=== PATIENT | female | born 1935 | race Caucasian/White ===

== ENCOUNTER 2019-01-22 18:04 | Inpatient (IN) | payer MEDICARE, BC ==
[~2019-01-22] VITALS: Ht 172.7 cm; Wt 81.8 kg
[2019-01-22] VITALS (7 sets, daily range): BP systolic 96–117; BP diastolic 37–50
--- NOTE | 2019-01-22 18:15 | NUR ---
PT ARRIVED WITH IV TO [facility] WITH COBAN IN PLACE. REMOVED COBAN AND DRSG AND NOTED IV DISLLODGED. D/C'D INTACT, NO BLEEDING NOTED, BANDAGE APPLIED.
--- NOTE | 2019-01-22 19:04 | NUR ---
BS REPORT TO JOSE ANGEL FOREMAN BY SBAR FORMAT
[2019-01-22 19:09] LABS: BASOPHILS 0.1 % (0-2); EOSINOPHILS 0 % (0-7); HEMATOCRIT 30.9 % (36.0-48.0); HEMOGLOBIN 10.3 g/dL (12-16); IMMATURE GRANULOCYTES 0.2 % (0-5); LYMPHOCYTES 7.1 % (15-50); MCH 32.8 pg (26.0-34.0); MCHC 33.3 g/dL (31.0-37.0); MCV 98.4 fL (80.0-100.0); MONOCYTES 5.8 % (2-11); NEUTROPHILS 86.8 % (40-80); PLATELET COUNT 151 10x3/uL (130-400); RBC 3.14 10x6/uL (4.00-5.40); RDW 14.7 % (11.5-14.5); WBC 10.3 10x3/uL (4.8-10.8)
[2019-01-22] MEDS ORDERED: ASPIRIN81 MG PO (19:11)
[2019-01-22] MEDS ORDERED: CALCIUM 600 +1 EAC3 PO (19:12)
[2019-01-22] MEDS ORDERED: CLARITIN 10 MG10 MG PO (19:13)
[2019-01-22] MEDS ORDERED: CYCLOBENZAPRINE10 MG PO (19:14)
[2019-01-22 19:19] LABS: APTT 35.9 SECONDS (22.8-39.4); INR 1.28 (0.85-1.17); PROTIME 15.4 SECONDS (11.6-15.0)
[2019-01-22 19:26] LABS: ALBUMIN 2.5 g/dL (3.4-5.0); ALKALINE PHOSPHATASE 68 U/L (46-116); ALT (SGPT) 16 U/L (10-68); BILIRUBIN - TOTAL 1.08 mg/dL (0.2-1.3); CALC OSMOLALITY 278 mosm/kg (275-300); CALCIUM 8.8 mg/dL (8.5-10.1); CARBON DIOXIDE 25.5 mmol/L (21.0-32.0); CHLORIDE - SERUM 98 mmol/L (98-107); GLUCOSE 116 mg/dL (74-106); POTASSIUM - SERUM 4.2 mmol/L (3.5-5.1); PROTEIN - SERUM 6.3 g/dL (6.4-8.2); SODIUM 133 mmol/L (136-145); UREA NITROGEN 47 mg/dL (7-18); eGFR NON AFRICAN AMERICAN 16 mL/min (90-120)
[2019-01-22 19:27] LABS: APPEARANCE TURBID (CLEAR); COLOR YELLOW (YELLOW); NITRITE NEGATIVE (NEGATIVE); PROTEIN 1+ mg/dL (NEGATIVE)
[2019-01-22 19:28] LABS: BACTERIA MANY /hpf (NONE SEEN); BILIRUBIN NEGATIVE (NEGATIVE); EPITHELIAL CELLS 0-5 /hpf (0-5); GLUCOSE NEGATIVE (NEGATIVE); KETONE NEGATIVE (NEGATIVE); UROBILINOGEN NORMAL (NORMAL); WHITE CELLS - URINE >50 /hpf (0-5)
--- NOTE | 2019-01-22 19:32 | MORECARE ---
CASE MANAGEMENT DISCHARGE SUMMARY PATIENT: RASHEL DURON UNIT: [id number] ADM DATE: 01/22/19 AGE: 83 : 36 SEX: F ROOM/BED: D.2304 AUTHOR: SHAWN HENRY PHYSICIAN: REFERRING PHYSICIAN: DANNI GARCIA MD DATE OF SERVICE: 01/22/19 Discharge Plan Patient Name: RASHEL DURON Facility: [facility]:[place] : 1935 Planned Disposition: Anticipated Discharge Date: Discharge Date: Expected LOS: Initial Reviewer: [email or web address] Initial Review Date: 01/22/2019 Generated: 01/22/19 8:31 pm Patient Name: RASHEL DURON Page [id number] at 1932 All edits/amendments must be made on the electronic document DICTATION DATE: 01/22/191930 ELECTRICAL PRODUCTS SALES ENGINEER: JESSE 01/22/191930 RPT#: [id number] DC DATE: STATUS: ADM IN [facility] [address] [place] [address] END OF REPORT
[2019-01-22 19:42] LABS: CKMB 0.8 U/L (0.0-3.6); CREATINE KINASE 276 UL (21-215)
[2019-01-22 19:45] LABS: TROPONIN-I 0.396 ng/mL (0.000-0.060)
--- NOTE | 2019-01-22 19:50 | NUR ---
RECEIVED PATIENT TO ROOM 2304 VIA ED BED. ACCOMPANIED BY ED RN. ASSISTED TO ICU BED. MONITORS CONNECTED TO PATIENT WITH ALARMS SET. VSS. ORIENTED TO ROOM. CALL LIGHT IN REACH AND ABLE TO UTILIZE TO MAKE NEEDS KNOWN
--- NOTE | 2019-01-22 21:00 | NUR ---
RESTING IN BED WITH EYES CLOSED EASILY ROUSED AND ALERT. VSS
--- NOTE | 2019-01-22 23:00 | NUR ---
RESTING IN BED WITH EYES CLOSED, EASILY ROUSED AND ALERT. VSS
[2019-01-23] VITALS (18 sets, daily range): BP systolic 87–156; BP diastolic 30–82; BMI 36.6
[2019-01-23 02:12] LABS: CKMB 1.6 U/L (0.0-3.6); CREATINE KINASE 268 UL (21-215)
[2019-01-23 02:25] LABS: TROPONIN-I 0.229 ng/mL (0.000-0.060)
[2019-01-23] MEDS ORDERED: BUMEX2 MG PO ×2 (04:47→05:00)
[2019-01-23] MEDS ORDERED: VISTARIL25 MG PO ×2 (04:48→05:35)
[2019-01-23] MEDS ORDERED: NEURONTIN 300300 MG PO (04:49)
[2019-01-23] MEDS ORDERED: NEURONTIN 400400 MG PO (04:52)
[2019-01-23] MEDS ORDERED: SILDENAFIL CITRATE PO (04:54)
--- NOTE | 2019-01-23 05:00 | NUR ---
RESTING IN BED WITH EYES CLOSED EASILY ROUSED AND ALERT. VSS
[2019-01-23] MEDS ORDERED: LIPITOR10 MG PO (05:01)
[2019-01-23] MEDS ORDERED: COREG12.5 MG PO (05:02)
[2019-01-23] MEDS ORDERED: OXYBUTYNIN CHLORIDE PO (05:04)
[2019-01-23] MEDS ORDERED: PAXIL10 MG PO (05:06)
[2019-01-23] MEDS ORDERED: PHENAZOPYRIDINE HCL PO (05:09)
[2019-01-23] MEDS ORDERED: PROTONIX FOR OR40 MG PO (05:10)
[2019-01-23] MEDS ORDERED: POTASSIUM CHLORIDE E PO (05:12)
[2019-01-23] MEDS ORDERED: CLONIDINE HCL 0.1 MG PO (05:14)
[2019-01-23] MEDS ORDERED: NYSTATIN1 PWD TOPICAL (05:20)
[2019-01-23] MEDS ORDERED: MUCINEX600 MG PO (05:24)
[2019-01-23] MEDS ORDERED: IPRAT-ALBUT 0.5-3 ML INH (05:25)
[2019-01-23] MEDS ORDERED: LAMISIL AT12 G1 TOPICAL (05:27)
[2019-01-23] MEDS ORDERED: LIDODERM 5 %1 PATCH TD (05:29)
[2019-01-23] MEDS ORDERED: MYLANTA / MAALO30 ML PO (05:30)
[2019-01-23] MEDS ORDERED: ZOFRAN4 MG PO (05:32)
[2019-01-23] MEDS ORDERED: PHENERGAN25 M1 PO (05:33)
[2019-01-23] MEDS ORDERED: ACETAMINOPHEN500 M1 PO (05:34)
[2019-01-23] MEDS ORDERED: VITAMIN D31000 UNIT PO (05:36)
[2019-01-23] MEDS ORDERED: ARTIFICIAL TEAR15 ML EACH EYE (05:38)
[2019-01-23] MEDS ORDERED: CALCIUM 600 +1 EAC3 PO (05:39)
[2019-01-23 05:40] LABS: BASOPHILS 0.1 % (0-2); EOSINOPHILS 0.1 % (0-7); HEMATOCRIT 28.6 % (36.0-48.0); HEMOGLOBIN 9.4 g/dL (12-16); IMMATURE GRANULOCYTES 0.2 % (0-5); LYMPHOCYTES 5.3 % (15-50); MCH 32.3 pg (26.0-34.0); MCHC 32.9 g/dL (31.0-37.0); MCV 98.3 fL (80.0-100.0); MEAN PLATELET VOLUME 10.2 fL (7.4-10.4); MONOCYTES 8.7 % (2-11); NEUTROPHILS 85.6 % (40-80); PLATELET COUNT 135 10x3/uL (130-400); RBC 2.91 10x6/uL (4.00-5.40); RDW 14.7 % (11.5-14.5); WBC 9.5 10x3/uL (4.8-10.8)
[2019-01-23] MEDS ORDERED: CLARITIN 10 MG10 MG PO (05:40)
[2019-01-23] MEDS ORDERED: CYCLOBENZAPRINE5 MG PO (05:41)
[2019-01-23] MEDS ORDERED: COZAAR50 MG PO (05:41)
[2019-01-23 06:02] LABS: ALBUMIN 2.1 g/dL (3.4-5.0); BILIRUBIN - TOTAL 1.08 mg/dL (0.2-1.3); CALCIUM 8.5 mg/dL (8.5-10.1); CARBON DIOXIDE 24.1 mmol/L (21.0-32.0); CREATININE - SERUM 3.2 mg/dL (0.6-1.3); MAGNESIUM - SERUM 1.3 mg/dL (1.8-2.4); PHOSPHOROUS 3.9 mg/dL (2.5-4.9); PROTEIN - SERUM 5.8 g/dL (6.4-8.2); VANCOMYCIN - RANDOM 18.8 ug/mL (10.0-20.0)
[2019-01-23 06:13] LABS: ANION GAP 13.8 mmol/L (8-16); POTASSIUM - SERUM 4.9 mmol/L (3.5-5.1)
--- NOTE | 2019-01-23 07:00 | NUR ---
REPORT RECEVIED FROM THE OFF GOING RN. SEE ASSESSMENT IN THE PTS FLOW SHEET. VSS AT THIS TIME. PT WILL GO FROM CONTROLLED AFIB TO NSR. PT DENIES PAIN/NEEDS AT THIS TIME. CALL LIGHT IN REACH. WILL CONT POC.
[2019-01-23 08:01] LABS: CKMB 0.9 U/L (0.0-3.6); CREATINE KINASE 220 UL (21-215)
[2019-01-23 08:03] LABS: TROPONIN-I 0.186 ng/mL (0.000-0.060)
--- NOTE | 2019-01-23 10:03 | NUR ---
SPOKE WITH DR GIFFORD. HE IS AWARE OF CONSULT.
--- NOTE | 2019-01-23 14:00 | NUR ---
PT LEFT WITH RADIOLOGY IN A STABLE CONDITION.
--- NOTE | 2019-01-23 14:59 | NUR ---
PT BACK FROM RADIOLOGY
--- NOTE | 2019-01-23 16:41 | NUR ---
REPORT CALLED TO ABEL STUART.
--- NOTE | 2019-01-23 17:08 | NUR ---
ALL [facility] ACCOUNTED FOR. PT TRANSFERED TO 2108 IN A STABLE CONDITION.
--- NOTE | 2019-01-23 17:14 | NUR ---
RECEIVED VIA BED FROM ICE. INTRODUCED MYSELF AND ORIENTED HER TO THE ROOM. SON AT BEDSIDE. IV PATENT TO LEFT FOREARM WITHOUT REDNESS OR EDEMA. NO REQUESTS VOICED.
--- NOTE | 2019-01-23 18:26 | NUR ---
IV LEFT FOREARM INFILTRATED, DC'D AND RESTARTED IN RIGHT HAND WITH 22G X 1 ATTEMPT. GIVEN ZOFRAN FOR C/O NAUSEA AND DOES NOT WANT EVENING MEAL AT THIS TIME. SPITTING UP LARGE AMT OF CLEAR MUCOUS.
--- NOTE | 2019-01-23 21:30 | NUR ---
EVENING ROUNDS COMPLETED. REPORT RECEIVED. PT SITTING UP IN BED WITH EYES OPENM, RR EVEN AND UNLABORED. BED IN LOW POSITION. NO S/S OF DISTRESS NOTED. INTRODUCED SELF TO PT. PT DENIES FURTHER NEEDS AT THIS TIME. EVENING MEDICATIONS ADMINISTERED WITHOUT ISSUE. CALL LIGHT IN REACH. WILL CTM.
[2019-01-24] VITALS: BP 112/66
--- NOTE | 2019-01-24 00:25 | NUR ---
EOSINOPHIL URINE TEST COLLECTED ORDERED. ADMINISTERED ORDERED ANALGESIC FOR COMPLAINTS OF BACK PAIN. NO S/S OF DISTRESS NOTED. CALL LIGHT IN REACH. WILL CTM,.
--- NOTE | 2019-01-24 01:41 | NUR ---
I have reviewed this patient and I concur with the Shift Assessment completed by the Licensed Practical Nurse today this shift.
--- NOTE | 2019-01-24 02:17 | NUR ---
PT SITTING UP IN BED WITH EYES CLOSED, RR EVEN AND UNLABORED. BED IN LOW POSITION. ORDERED ABX INFUSING ORDERED. NO S/S OF DISTRESS NOTED. CALL LIGHT IN REACH. WILL CTM.
--- NOTE | 2019-01-24 03:58 | NUR ---
PT IS DIAPHORETIC AND FLUSHED IN THE FACE. EKG DONE AND PLACED IN THE CHART. PT IS UNCONTROLLED AFIB. HEAR RATE RANGING FROM 110-140 CHECKED FSBS IT SI 131 PT DENIES ANY AFIB, SON STATES WHEN PT WAS IN ICU SHE HAD AFIB, EKG SCANNED IN THE COMPUTER IS NOTED TO HAVE SR. DENTAL SURGEON STATES PT HAS BEEN IN A FIB SINCE ADMIT TO 2[address]. P[address] DUE TO THE INCREASE IN HEART RATE AND DECREASE IN BLOOD PRESSURE. THALIA STUART WILL UPDATE DOCTOR.
[2019-01-24 04:00] VITALS: BP 81/43
--- NOTE | 2019-01-24 04:05 | NUR ---
NOTIFIED BY DEPUTY SHERIFF BAILIFF OF PT BLOOD PRESSURE, 81/43 TAKEN IN LEFT ARM. EKG PERFORMED. NOTIFIED DR GIFFORD OF PT EKG RESULT. NO ORDERS GIVEN. WILL CTM.
--- NOTE | 2019-01-24 08:05 | NUR ---
RECEIVED BED SIDE SHIFT REPORT FROM NIGHT NURSE. PT ASLEEP.
[2019-01-24 08:38] VITALS: BP 146/75
[2019-01-24 08:57] VITALS: Ht 172.7 cm; Wt 81.8 kg
[2019-01-24 11:30] VITALS: BP 140/71
--- NOTE | 2019-01-24 14:33 | CN ---
PATIENT NAME:RASHEL DURON MEDICAL RECORD: [id number] : 37 LOCATION:D.Lance D.2109 ADMIT DATE: 01/22/19 ACCOUNT: [id number] CONSULTING PHYSICIAN: HUGH GIFFORD MD REFERRING PHYSICIAN: DANNI GARCIA MD DATE OF CONSULTATION: 01/23/2019 HISTORY OF PRESENT ILLNESS: An 83-year-old female transferred from [facility]. She has history of coronary artery disease and pulmonary hypertension. Found to have elevated cardiac enzymes and urosepsis. Denies any pressure or tightness in the chest. She does have dyspnea at baseline, but this is no worse by her report. We are asked to see her concerning her cardiovascular status. PAST MEDICAL HISTORY: Includes; 1. History of hypertension. 2. Dyslipidemia. 3. Coronary artery disease. 4. Pulmonary hypertension. ALLERGIES: REGLAN. MEDICATIONS: Include Annabel 30 mg p.o. b.i.d., Protonix 40 daily, Mucinex 400 b.i.d., Bumex 2 mg p.o. daily, Vistaril 25 q.i.d. p.r.n., Paxil 30 daily, Neurontin 300 b.i.d. and 400 at bedtime, aspirin 81 daily, losartan 50 mg b.i.d., carvedilol 12.5 b.i.d., and Lipitor 10 daily. SOCIAL HISTORY: Resides in halfway in [place], [place]. Nonsmoker and nondrinker. REVIEW OF SYSTEMS: The patient reports easy bruising but reports no swollen glands. The patient reports no fever, no night sweats, no significant weight gain, no significant weight loss. No significant exercise tolerance. The patient reports no dry eyes, no irritation, no vision change. Patient reports no difficulty hearing and no ear pain. Patient reports no frequent nose bleeds or nose and sinus problems. Patient reports on arm pain on exertion. No shortness of breath while lying down. No history of heart murmur. Patient reports no cough, no wheezing or coughing up blood. Patient reports no abdominal pain, no vomiting. Normal appetite. No diarrhea and not vomiting blood. No nausea and no constipation. Patient reports no incontinence. No difficulty urinating. No hematuria. No increased frequency. Patient reports no muscle aches. No weakness, no arthralgias, no back pain. No swelling of the extremities. Patient reports no abnormal mole, no jaundice, no rashes. Reports no loss of consciousness. No weakness and no numbness. No seizures, dizziness, or headaches. The patient reports no depression, no sleep disturbance, feeling safe in a relationship and no alcohol abuse. Patient reports on fatigue. Reports no runny nose or sinus pressure. No itching, no hives, and no frequent sneezing. PHYSICAL EXAMINATION: GENERAL: Pleasant elderly female, in no acute distress. VITAL SIGNS: Blood pressure 136/82. Pulse 78 and regular. HEENT: Normocephalic and atraumatic. NECK: No bruits noted. HEART: Regular. II/ systolic ejection murmur. CONSULT REPORT [id number] RASHEL DURON LUNGS: Good air excursion. ABDOMEN: Soft and nontender. EXTREMITIES: Pulses 2+ with no edema. IMPRESSION: Difficult to fully assess cardiac enzymes, particularly in light of her elevated creatinine, although certainly could be a strain pattern from underlying urosepsis. This is more likely given her lack of symptoms from ischemic standpoint. I will check echocardiographic study for focal wall motion. Otherwise, agree with current management. TRANSINT:[id number] Voice Confirmation ID: [id number] DOCUMENT ID: [id number] HUGH GIFFORD MD at 1433 CC: [id number] DICTATION DATE: 01/23/19 183 ENERGY DERIVATIVES TRADER: 01/23/192013 ADM IN [facility] [address] [place] [address]
[2019-01-24 14:48] VITALS: BP 133/72
--- NOTE | 2019-01-24 17:06 | MORECARE ---
CASE MANAGEMENT DISCHARGE SUMMARY PATIENT: RASHEL DURON UNIT: [id number] ADM DATE: 01/22/19 AGE: 83 : 36 SEX: F ROOM/BED: D.2105 AUTHOR: CARL,DOC PHYSICIAN: REFERRING PHYSICIAN: DANNI GARCIA MD DATE OF SERVICE: 01/24/19 Discharge Plan Patient Name: RASHEL DURON Facility: [facility]:[place] : 1935 Planned Disposition: Nursing Facility [facility] Cert Anticipated Discharge Date: Discharge Date: Expected LOS: Initial Reviewer: [email or web address] Initial Review Date: 01/22/2019 Generated: 01/24/19 6:06 pm Comments DCP- Discharge Planning Updated by [email or web address]: Rodrigo Case on 01/24/19 4:[address] Patient Name: RASHEL DURON Admission Status: ER Accout number: [id number] Admission Date: 01-22-2019 : 1935 Admission Diagnosis: Attending: DANNI GARCIA Current LOS: 2 Anticipated DC Date: Planned Disposition: Nursing Facility [facility] Cert Primary Insurance: MEDICARE A & B PLANNED EXTERNAL PROVIDER: [facility], STEAM BRUSH OPERATOR CARE MEDICAID BED Discharge Planning Comments: CM MET WITH PT AND SONMARCO IN ROOM TO DISCUSS DISCHARGE NEEDS AND PLANNING. PT AND SON REPORT PT LIVES AT [facility] AND WILL RETURN THERE AT DISCHARGE. CHOICE LETTER SIGNED. Worm Farmer: Rodrigo Case DCPIA - Discharge Planning Initial Assessment Updated by [email or web address]: Rodrigo Case on 01/24/19 5:02 pm * Is the patient Alert and Oriented? Yes * How many steps to enter\exit or inside your home? NONE * PCP [facility] * Pharmacy [facility] * Preadmission Environment Germination Testing Manager Long-Term * Facility Name [facility] * ADLs Partial Dependent * Partial ADLs (Assistance needed) Ambulation Bathing Medication Management Toileting Transfers * Equipment Nebulizer Oxygen Walker Wheelchair * Other Equipment ALL MEDICAL EQUIPMENT PROVIDED BY [facility] * List name and contact numbers for known caregivers / representatives who currently or will assist patient after discharge: HARRISON LARA, HARRISON SHANNON, * Verbal permission to speak to the caregivers and representatives has been obtained from the patient. Yes * Community resources currently utilized None * Please name any agencies selected above. NONE * Additional services required to return to the preadmission environment? No * Can the patient safely return to the preadmission environment? Yes * Has this patient been hospitalized within the prior 30 days at any hospital? No Coverage Notice Reviewer: [id number] Chucho Case Notice Issued Date-Time: 01/24/2019 13:10 Notice Type: Patient Choice Letter Notice Delivered To: Family Member Relationship to Patient: Son Impregnator Electrolytic Capacitors Name: MARCO Delivery Method: HAND - Hand Delivered Zahida Days: Prior Verbal Notification: Recipient Understood Notice: Yes Recipient Signature: Yes Med Rec Note Co-signed by Attending: Coverage Notice Comment: [facility] Last DP export: 01/22/19 6:32 pm Patient Name: RASHEL DURON Page 36019 at 1706 All edits/amendments must be made on the electronic document DICTATION DATE: 01/24/191705 BOAT ASSEMBLER: JESSE 01/24/19 170 RPT#: [id number] DC DATE: STATUS: ADM IN [facility] [address] [place] [address] END OF REPORT
--- NOTE | 2019-01-24 19:06 | NUR ---
RECIEVED UP IN BED WITH HOB ELEVATED. IV TO RIGHT HAND WITH NS AT 58CC/HR. ALERT AND ORIENTED. F/C INTACT WITH CLEAR YELLOW URINE TO TRADE MARK EXAMINER DRAINAGE BAG. TELEMETRY IN PLACE. DENIES ANY NEEDS AT THIS TIME.
[2019-01-24 20:00] VITALS: BP 129/67
[2019-01-25] VITALS (11 sets, daily range): BP systolic 98–159; BP diastolic 64–98
[2019-01-25 05:01] LABS: BASOPHILS 0.1 % (0-2); EOSINOPHILS 1.7 % (0-7); HEMATOCRIT 27.6 % (36.0-48.0); HEMOGLOBIN 9.6 g/dL (12-16); IMMATURE GRANULOCYTES 0.3 % (0-5); LYMPHOCYTES 13.6 % (15-50); MCH 33.2 pg (26.0-34.0); MCHC 34.8 g/dL (31.0-37.0); MEAN PLATELET VOLUME 10.7 fL (7.4-10.4); MONOCYTES 11.1 % (2-11); NEUTROPHILS 73.2 % (40-80); PLATELET COUNT 148 10x3/uL (130-400); RBC 2.89 10x6/uL (4.00-5.40); RDW 14.4 % (11.5-14.5); WBC 7.2 10x3/uL (4.8-10.8)
[2019-01-25 05:02] LABS: MCV 95.5 fL (80.0-100.0)
[2019-01-25 05:29] LABS: ANION GAP 16.8 mmol/L (8-16); CARBON DIOXIDE 23.1 mmol/L (21.0-32.0); CREATININE - SERUM 2.8 mg/dL (0.6-1.3); POTASSIUM - SERUM 4.9 mmol/L (3.5-5.1); VANCOMYCIN - RANDOM 18.5 ug/mL (10.0-20.0)
--- NOTE | 2019-01-25 12:56 | NUR ---
PT C/O FEELING WEAK AND NAUSEATED BUT DENIES ANY PAIN. SKIN COOL AND CLAMMY B/P 85/53. ORDER RECEIVED FROM DR. STALLINGS PLANT WORKER FOR 500CC BOLUS OF NS AND CALL DR. GARCIA WHICH WAS DONE AND NO FURTHER ORDERS RECEIVED.
--- NOTE | 2019-01-25 14:00 | NUR ---
500 CC BOLUS COMPLETED AND B/P REMAINS LOW AT 72/47. DR. GARCIA IS ON FLOOR AT THIS TIME AND WILL SEE PT.
--- NOTE | 2019-01-25 14:13 | NUR ---
IN PATIENT CHART TO ASSIST WITH PATIENT CARE.
--- NOTE | 2019-01-25 15:22 | NUR ---
PATIENT TRANSFERRED VIA BED BY TWO NURSING STAFF TO ICU - TRANSFERRED PT TO ICU BED - HYPOTHERMIC (94.4) PLACED PT ON BED WARMER - PT THANKED - PT RESTING WITH EYES CLOSED - RESPIRATIONS REG RATE AND RHYTHM - QUICK START DONE. VSS.
--- NOTE | 2019-01-25 15:25 | NUR ---
ORDER RECEIVED FROM DR. GARCIA-TRANSFER TO ICU. REPORT CALLED TO LIVIA PT TRANSFERRED VIA BED, PTS SON NOTIFIED.
--- NOTE | 2019-01-25 16:11 | NUR ---
PT RESTING WITH EYES CLOSED - RESPIRATIONS REG RATE AND RHYTHM - VSS - CPOC
--- NOTE | 2019-01-25 17:50 | NUR ---
PT AWAKENED C/O FEELING HOT - CHECKED TEMP 98.6 ORAL - STOPPED BEAR HUGGER - DINNER TRAY GIVEN TO PATIENT - MEDICATIONS GIVEN - PT STATED SHE FEELS MUCH BETTER - VSS - PT DENIED ANY ACUTE DISCOMFORT - CPOC
--- NOTE | 2019-01-25 18:24 | NUR ---
PATIENT WATCHING TELEVISION - PATIENT STATED SHE WILL EAT DINNER TRAY AFTER SHE RESTS. VSS [facility]
--- NOTE | 2019-01-25 18:56 | NUR ---
ATTEMPTED TO OBTAIN URINE SAMPLET BUT WAS UNABLE TO DO SO - WILL NOTIFY ONCOMING RN -
--- NOTE | 2019-01-25 19:45 | NUR ---
RECEIVED PATIENT CARE SHIFT ASSESSMENT COMPLETED SEE FLOWSHEET
[2019-01-25 20:49] LABS: ANION GAP 18.5 mmol/L (8-16); CALCIUM 8.7 mg/dL (8.5-10.1); CARBON DIOXIDE 19.7 mmol/L (21.0-32.0); CREATININE - SERUM 3.1 mg/dL (0.6-1.3); POTASSIUM - SERUM 4.2 mmol/L (3.5-5.1)
--- NOTE | 2019-01-25 23:15 | NUR ---
REASSESSMENT COMPLETED SEE FLOWSHEET
[2019-01-26] VITALS (23 sets, daily range): BP systolic 123–187; BP diastolic 76–140
--- NOTE | 2019-01-26 00:51 | NUR ---
PT TEMP 96.7 - WARM BLANKET X2 APPLIED AT THIS TIME
--- NOTE | 2019-01-26 01:15 | NUR ---
PATIENT RECEIVED TISSUES PER REQUEST
--- NOTE | 2019-01-26 03:50 | NUR ---
PATIENT REQUESTED PRN NAUSEA MEDICATION SEE EMAR FOR ADMINISTRATION
[2019-01-26 03:57] LABS: HEMATOCRIT 27.2 % (36.0-48.0); HEMOGLOBIN 9.5 g/dL (12-16); MCH 32.6 pg (26.0-34.0); MCHC 34.9 g/dL (31.0-37.0); MEAN PLATELET VOLUME 11.5 fL (7.4-10.4); PLATELET COUNT 172 10x3/uL (130-400); RBC 2.91 10x6/uL (4.00-5.40); RDW 14.7 % (11.5-14.5); WBC 7.4 10x3/uL (4.8-10.8)
[2019-01-26 03:58] LABS: MCV 93.5 fL (80.0-100.0)
[2019-01-26 04:09] LABS: EOSINOPHILS 2 % (0-7); LYMPHOCYTES 20 % (15-50); MONOCYTES 18 % (2-11); NEUTROPHILS 60 % (40-80); PLATELET ESTIMATE NORMAL
[2019-01-26 04:10] LABS: ANION GAP 16.9 mmol/L (8-16); CALCIUM 8.5 mg/dL (8.5-10.1); CARBON DIOXIDE 21.2 mmol/L (21.0-32.0); CREATININE - SERUM 3.3 mg/dL (0.6-1.3); POTASSIUM - SERUM 4.1 mmol/L (3.5-5.1); VANCOMYCIN - RANDOM 30.1 ug/mL (10.0-20.0)
--- NOTE | 2019-01-26 05:56 | NUR ---
PATIENT SON AT BEDSIDE, ALL QUESTIONS ANSWERED UPDATE GIVEN CPOC
--- NOTE | 2019-01-26 10:01 | NUR ---
INCONT OF STOOL
--- NOTE | 2019-01-26 11:00 | NUR ---
NO CHANGES NOTED
--- NOTE | 2019-01-26 15:00 | NUR ---
NO CHANGES NOTED
--- NOTE | 2019-01-26 19:15 | NUR ---
RECEIVED PATIENT CARE, PATIENT RESTING, EVEN RISE AND FALL OF CHEST ATTENTION FOCUSED ON TELEVISION DENIES NEEDS SYSTOLIC BP ELEVATED, READJUSTED BLOOD PRESSURE CUFF. PT DENIES PAIN. CPOC
--- NOTE | 2019-01-26 21:15 | NUR ---
PT CO OF NAUSEA, PRN ZOFRAN RECEIVED SEE EMAR FOR ADMINISTRATION
--- NOTE | 2019-01-26 21:20 | NUR ---
SPOKE WITH DR GARCIA REGARDING PATIENT SYSTOLIC AND DIASTOLIC BP - NEW ORDERS RECEIVED
--- NOTE | 2019-01-26 21:35 | NUR ---
UNABLE TO GIVE NEWLY ORDERED MED AT THIS TIME DUE TO AVAILABILITY
--- NOTE | 2019-01-26 23:15 | NUR ---
REASSESSMENT COMPLETED PATIENT RECEIVED SPRITE PER REQUEST. EDUCATION PROVIDED ON NPO STATUS AFTER MIDNIGHT DUE TO PROCEDURE NEXT AM
[2019-01-27] VITALS (17 sets, daily range): BP systolic 127–183; BP diastolic 90–142
--- NOTE | 2019-01-27 00:35 | NUR ---
ELEVATED DIASTOLYIC PRESSURE NOTED AT THIS TIME PT CO OF NAUSEA
--- NOTE | 2019-01-27 02:17 | NUR ---
PT CO OF N/V MEDICATION ADMINISTERED SEE EMAR FOR DETAILS TEMP 99.3
[2019-01-27 04:13] LABS: BASOPHILS 0.2 % (0-2); EOSINOPHILS 1.6 % (0-7); HEMATOCRIT 27.5 % (36.0-48.0); HEMOGLOBIN 9.4 g/dL (12-16); IMMATURE GRANULOCYTES 1.1 % (0-5); LYMPHOCYTES 12.7 % (15-50); MCH 32.4 pg (26.0-34.0); MCHC 34.2 g/dL (31.0-37.0); MCV 94.8 fL (80.0-100.0); MEAN PLATELET VOLUME 11.1 fL (7.4-10.4); MONOCYTES 10.9 % (2-11); NEUTROPHILS 73.5 % (40-80); PLATELET COUNT 199 10x3/uL (130-400); RDW 14.7 % (11.5-14.5)
[2019-01-27 04:17] LABS: WBC 9.5 10x3/uL (4.8-10.8)
[2019-01-27 04:29] LABS: ANION GAP 17.2 mmol/L (8-16); CALCIUM 8.5 mg/dL (8.5-10.1); CARBON DIOXIDE 20.7 mmol/L (21.0-32.0); CREATININE - SERUM 3.2 mg/dL (0.6-1.3); POTASSIUM - SERUM 3.9 mmol/L (3.5-5.1); VANCOMYCIN - RANDOM 22.4 ug/mL (10.0-20.0)
--- NOTE | 2019-01-27 06:15 | NUR ---
PT INCONTINENT OF BOWEL , FULL LINEN CHNAGE CHG BATHE COMPLETED AT THIS TIME INCREASED DYASTOLIC
--- NOTE | 2019-01-27 07:00 | NUR ---
RECEIVED REPORT FROM NIGHT NURSE. PT RESTING IN BED AWAKE AND ALERT WITH VSS. CONTROLLED A-FIB. WILL CONTINUE TO MONITOR
--- NOTE | 2019-01-27 09:00 | NUR ---
PATIENT STABLE. ATTEMPTED TO START NEW IV BUT FAILED. STILL HAS 22 GUAGE TO RIGHT HAND BUT IS POSITIONAL. WILL USE FOR NOW
--- NOTE | 2019-01-27 09:29 | NUR ---
NUTRITION F/U CHART REVIEWED. PT CURRENTLY NPO. WILL PROVIDE DIET WHEN RESUMED, MONITOR PO INTAKE. RD FOLLOWING
--- NOTE | 2019-01-27 10:30 | NUR ---
ESOPHAGEAL ECHO COMPLETED AT THIS TIME BY DR. SOLORIO. PT AWOKEN FROM PROPOFOL ANESTHESIA. VSS. WILL CONTINUE TO MONITOR
--- NOTE | 2019-01-27 11:30 | NUR ---
OBTAINED ADDITIONAL BP MED FOR HYPERTENSION FROM DR. TREJO. PT AWAKE AND ALERT RESTING IN BED.
--- NOTE | 2019-01-27 13:00 | NUR ---
PHYSICAL THERAPY CAME BY AND LET PATIENT SIT UP ON SIDE OF BED. PATIENT TOLERATED WELL.
--- NOTE | 2019-01-27 14:10 | NUR ---
DR. TREJO GAVE OKAY TO TRANSFER PATIENT TO FLOOR.
[2019-01-27 15:41] LABS: ERYTHROCYTE SEDIMENTATION RATE 47 mm/hr (0-30)
--- NOTE | 2019-01-27 16:36 | NUR ---
CALLED REPORT TO MED 2 NURSE.
--- NOTE | 2019-01-27 16:45 | NUR ---
RECEIVED PT FROM ICU VIA BED IN STABLE CONDITION WITH PERSONAL BELONGINGS PT ON CONTACT ISOLATION HAS ROGERS CATHETER W/CLEAR YELLOW URINE RT THUMB IV PATENT WITH NS @ 50CC/HR WITHOUT DIFFICULTY SITE FREE OF REDNESS OR EDEMA
--- NOTE | 2019-01-27 20:01 | NUR ---
REST IN BED. FAMILY AT BEDSIDE. CALL LIGHT IN REACH.
[2019-01-28] VITALS: BP 134/85
--- NOTE | 2019-01-28 01:47 | NUR ---
I have reviewed this patient and I concur with the Shift Assessment completed by the Licensed Practical Nurse today this shift.
--- NOTE | 2019-01-28 01:49 | NUR ---
REST QUIETLY IN BED. RESP EVEN, NO S/S OF DISTRESS. CALL LIGHT IN REACH.
[2019-01-28 04:00] VITALS: BP 154/79
[2019-01-28 06:22] LABS: ANION GAP 15.5 mmol/L (8-16); CALCIUM 8.7 mg/dL (8.5-10.1); CREATININE - SERUM 2.5 mg/dL (0.6-1.3); POTASSIUM - SERUM 3.5 mmol/L (3.5-5.1); VANCOMYCIN - RANDOM 17.3 ug/mL (10.0-20.0)
[2019-01-28 06:27] LABS: BASOPHILS 0.4 % (0-2); EOSINOPHILS 3.2 % (0-7); HEMATOCRIT 27.7 % (36.0-48.0); HEMOGLOBIN 9.3 g/dL (12-16); IMMATURE GRANULOCYTES 2.1 % (0-5); LYMPHOCYTES 13.2 % (15-50); MCH 32.2 pg (26.0-34.0); MCHC 33.6 g/dL (31.0-37.0); MCV 95.8 fL (80.0-100.0); MONOCYTES 8.7 % (2-11); NEUTROPHILS 72.4 % (40-80); PLATELET COUNT 236 10x3/uL (130-400); RBC 2.89 10x6/uL (4.00-5.40); WBC 10.2 10x3/uL (4.8-10.8)
--- NOTE | 2019-01-28 07:35 | NUR ---
ASSESSMENT COMPLETED. ALERT AND ORIENTED. PT IS ON CONTACT ISOLATION. TELEMERTY SHOWS CAF 96. O2 AT 3 L/M PER NC. RIGHT HAND IV WITH NS AT 50.ROGERS CATH PATENT TO GRAVITY BAG. SCDS ON. FAMILY AT BEDSIDE. DENIES ANY NEEDS. SR UP WITH CALL LIGHT IN REACH
[2019-01-28 08:55] VITALS: BP 148/78
--- NOTE | 2019-01-28 09:00 | TEE ---
PATIENT:RASHEL DURON MEDICAL RECORD: [id number] LOCATION:D.M2 D.213 AGE OF PATIENT: 83 ADMISSION DATE: 01/22/19 SEX: F REFERRING PHYSICIAN: INTERPRETING PHYSICIAN: HUGH GIFFORD MD TRANSESOPHAGEAL ECHOCARDIOGRAM Date: 01/27/19 VANNESSA CHARGE Y INDICATIONS: ASSESS FOR CLOTS (RV) PREMEDICATIONS: PATIENT'S RESPONSE PROCEDURE DOPPLER MEASUREMENTS: LVIT LA PA 61.0 RA LVOT 95.0 RVOT 45.0 Asc. Ao 120 AV Gradient Peak 5.7 AV Mean 3.2 AV Area 2.9 MV Gradient Peak 2.5 MV Mean 0.76 MV Area INTERPRETATION: Doppler: 2-D: EF 30-35%, NO CLOTS SEEN,DILATED RIGHT HEART COLOR FLOW DOPPLER SEVERE TR, TRACE AI/MR NORMAL SALINE STUDY: MISCELLANOUS: DIAGNOSIS: PLAN: Line Worker:Bipin Reina Aircraft Armament Mechanic: Praful RAO COMMENTS: DATE OF SERVICE: 01/27/2019 PROCEDURE: Transesophageal Note DESCRIPTION OF PROCEDURE: After general sedation via TIVA via anesthesia, transesophageal Omniplane probe was placed down to the distal esophagus and proximal stomach without difficulty. FINDINGS: As follows, LVH is present. LV internal dimensions are normal. LV TRANSESOPHAGEAL ECHOCARDIOGRAM REPORT [id number] RUBIO DURON is globally hypokinetic with reduced EF 30% to 35%. Aortic valve is tricuspid with good valve excursion and trivial AI, no evidence of vegetation. Left atrium appears normal in size. Left atrial appendage well visualized with good contractility. Mitral valve appears normal with trivial MR. No evidence of vegetation. Right-sided chambers appeared dilated. There is a moderator band in the RV apex. No evidence of clots. This is a normal variant. There is uakcclzk-zs-rhgniz TR. No evidence of vegetation. At the end of the procedure, transesophageal Omniplane probe was turned posteriorly and this shows no evidence of atherosclerotic debris. IMPRESSION: No evidence of LV or RV thrombus and no evidence of vegetation. Moderator band in RV, which is a normal structural variant. TRANSINT:[id number] Voice Confirmation ID: [id number] DOCUMENT ID: [id number] at 0900 CC: [id number] DICTATION DATE: 01/27/19 1033 CNS: 01/27/[address] [facility] [address] [place] [address]
--- NOTE | 2019-01-28 11:00 | NUR ---
Nutrition follow-up/consult: Visited with pt and family at bedside Pt reports still with some nausea; trying to eat breakfast but not hungry. Did agree to eat some sherbet. RDN provided. Also agreed to try vanilla Ensure; ordered. Labs reviewed Wt: 239# Son stated pt is still very weak but he is helping her with meals and encouraging her to try and eat more. RDN will also encourage increased po intake and honor food preferences. Ensure ordered with meals. Following.
--- NOTE | 2019-01-28 11:11 | MORECARE ---
CASE MANAGEMENT DISCHARGE SUMMARY PATIENT: RASHEL DURON UNIT: [id number] ADM DATE: 01/22/19 AGE: 83 : 36 SEX: F ROOM/BED: D.2130 AUTHOR: CARLDOC PHYSICIAN: REFERRING PHYSICIAN: DANNI GARCIA MD DATE OF SERVICE: 01/28/19 Discharge Plan Patient Name: RASHEL DURON Facility: [facility]:[place] : 1935 Planned Disposition: Nursing Facility [facility] Cert Anticipated Discharge Date: Discharge Date: Expected LOS: Initial Reviewer: [email or web address] Initial Review Date: 01/22/2019 Generated: 01/28/19 12:11 pm Comments DCP- Discharge Planning Updated by [email or web address]: Rodrigo Case on 01/28/19 10:[address] Patient Name: RASHEL DURON Encounter No: [id number] : 1935 Primary Insurance: MEDICARE A & B Anticipated DC Date: Planned Disposition: Nursing Facility [facility] Cert External Planned Provider: [facility], WORKFORCE PLANNING ANALYST CARE MEDICAID BED Discharge Planning Comments: CM FAXED UPDATE TO [facility], . FOR DISCHARGE BACK TO [employer]ANNING [facility]ST [facility], FAX DISCHARGE INFORMATION TO [facility] AT [phone]. CALL NURSE REPORT TO [facility] AT [phone]. [facility] TO [facility] VAN TRANSPORTATION. Swimming Teacher: Rodrigo Case DCP- Discharge Planning Updated by [email or web address]: Rodrigo Case on 01/24/19 4:[address] Patient Name: RASHEL DURON Admission Status: ER Accout number: [id number] Admission Date: 01-22-2019 : 1935 Admission Diagnosis: Attending: DANNI GARCIA Current LOS: 2 Anticipated DC Date: Planned Disposition: Nursing Facility [facility] Cert Primary Insurance: MEDICARE A & B PLANNED EXTERNAL PROVIDER: [facility], WORKFORCE PLANNING ANALYST CARE MEDICAID BED Discharge Planning Comments: CM MET WITH PT AND SONMARCO IN ROOM TO DISCUSS DISCHARGE NEEDS AND PLANNING. PT AND SON REPORT PT LIVES AT [facility] AND WILL RETURN THERE AT DISCHARGE. CHOICE LETTER SIGNED. Swimming Teacher: Rodrigo Case DCPIA - Discharge Planning Initial Assessment Updated by [email or web address]: Rodrigo Case on 01/24/19 5:02 pm * Is the patient Alert and Oriented? Yes * How many steps to enter\exit or inside your home? NONE * [facility] * Pharmacy [facility] * Preadmission Environment [facility] Detention * Facility Name [facility] * ADLs Partial Dependent * Partial ADLs (Assistance needed) Ambulation Bathing Medication Management Toileting Transfers * Equipment Nebulizer Oxygen Walker Wheelchair * Other Equipment ALL MEDICAL EQUIPMENT PROVIDED BY [facility] * List name and contact numbers for known caregivers / representatives who currently or will assist patient after discharge: HARRISON LARA, HARRISON SHANNON, * Verbal permission to speak to the caregivers and representatives has been obtained from the patient. Yes * Community resources currently utilized None * Please name any agencies selected above. NONE * Additional services required to return to the preadmission environment? No * Can the patient safely return to the preadmission environment? Yes * Has this patient been hospitalized within the prior 30 days at any hospital? No External Providers [facility] Next Contact Date: 01/28/2019 Service Request Date: Service Type: Resolution: Reviewer: Comments: Coverage Notice Reviewer: [email or web address] - Rodrigo Smithwell Notice Issued Date-Time: 01/24/2019 13:10 Notice Type: Patient Choice Letter Notice Delivered To: Family Member Relationship to Patient: Son Fruit Rancher Name: MARCO Delivery Method: HAND - Hand Delivered Zahida Days: Prior Verbal Notification: Recipient Understood Notice: Yes Recipient Signature: Yes Med Rec Note Co-signed by Attending: Coverage Notice Comment: [facility] Last DP export: 01/24/19 4:06 pm Patient Name: RASHEL DURON Page [id number] at 1111 All edits/amendments must be made on the electronic document DICTATION DATE: 01/28/19 1111 BLOCKER HAND: JESSE 01/28/19 1111 RPT#: [id number] DC DATE: STATUS: ADM IN [facility] [address] [place] [address] END OF REPORT
[2019-01-28 12:12] LABS: ANA REFLEX - DIRECT Negative (Negative); ANTI-CENTROMERE B ANTIBODIES <0.2 AI (0.0-0.9)
[2019-01-28 12:35] VITALS: BP 136/82
--- NOTE | 2019-01-28 14:12 | NUR ---
BACK TO ROOM AFTER CARDIOVERSION. ALERT AND ORIENTED. TELEMERTY SHOWS SR 82
--- NOTE | 2019-01-28 14:30 | NUR ---
HOB UP. DENIES ANY NEEDS, SR UP WITH CALL LIGHT IN REACH
[2019-01-28 15:11] VITALS: BP 141/69
--- NOTE | 2019-01-28 17:08 | NUR ---
OT NOTE: PT COMPLETED BED MOBILITY TASKS WITH MAX A. PT COMPLETED HYGIENE AND GROOMING TASKS WITH MIN A. THANK YOU, NIGEL VEE
--- NOTE | 2019-01-28 19:30 | NUR ---
.. BED LOW AND LOCKED PT ALERT AND ORIENTED LCTA .....ROGERS TO GRAVITY PT IN CONTACT ISO DUE TO ECHOLI IN URINE SCD IN PLACE IV TO RT HAND SL AT THIS TIME
[2019-01-28 20:00] VITALS: BP 144/74
[2019-01-29] VITALS: BP 138/70
[2019-01-29 06:11] LABS: BASOPHILS 0.5 % (0-2); EOSINOPHILS 4.1 % (0-7); HEMATOCRIT 28.4 % (36.0-48.0); HEMOGLOBIN 9.4 g/dL (12-16); IMMATURE GRANULOCYTES 3.6 % (0-5); LYMPHOCYTES 12.4 % (15-50); MCH 32.1 pg (26.0-34.0); MCHC 33.1 g/dL (31.0-37.0); MCV 96.9 fL (80.0-100.0); NEUTROPHILS 70.4 % (40-80); PLATELET COUNT 269 10x3/uL (130-400); RBC 2.93 10x6/uL (4.00-5.40); RDW 15.1 % (11.5-14.5); WBC 7.9 10x3/uL (4.8-10.8)
[2019-01-29 06:22] LABS: ANION GAP 11.9 mmol/L (8-16); CALCIUM 8.1 mg/dL (8.5-10.1); CARBON DIOXIDE 23.4 mmol/L (21.0-32.0); POTASSIUM - SERUM 3.3 mmol/L (3.5-5.1)
[2019-01-29 06:23] LABS: CREATININE - SERUM 1.7 mg/dL (0.6-1.3)
[2019-01-29 06:49] VITALS: BP 138/89
[2019-01-29 09:15] VITALS: BP 144/73
--- NOTE | 2019-01-29 09:40 | MORECARE ---
CASE MANAGEMENT DISCHARGE SUMMARY PATIENT: RASHEL DURON UNIT: [id number] ADM DATE: 01/22/19 AGE: 83 : 36 SEX: F ROOM/BED: D.2130 AUTHOR: CARLDOC PHYSICIAN: REFERRING PHYSICIAN: DANNI GARCIA MD DATE OF SERVICE: 01/29/19 Discharge Plan Patient Name: RASHEL DURON Facility: [facility]:[place] : 1935 Planned Disposition: Usp Facility Anticipated Discharge Date: 01/29/19 Discharge Date: Expected LOS: 7 Initial Reviewer: [email or web address] Initial Review Date: 01/22/2019 Generated: 01/29/19 10:39 am Comments DCP- Discharge Planning Updated by [id number]: Rodrigo Case on 01/28/19 10:[address] Patient Name: RASHEL DURON Encounter No: [id number] : 1935 Primary Insurance: MEDICARE A & B Anticipated DC Date: Planned Disposition: Nursing Facility [facility] Cert External Planned Provider: [facility], CIRCULATION SALES REPRESENTATIVE CARE MEDICAID BED Discharge Planning Comments: CM FAXED UPDATE TO [facility], . FOR DISCHARGE BACK TO LONGTERM CARE, FAX DISCHARGE INFORMATION TO [facility] AT [phone]. CALL NURSE REPORT TO [facility] AT [phone]. [facility] TO ARRANGE VAN TRANSPORTATION. Potato Seed Cutter: Rodrigo Case DCP- Discharge Planning Updated by [id number]: Rodrigo Case on 01/24/19 4:[address] Patient Name: RASHEL DURON Admission Status: ER Accout number: [id number] Admission Date: 01-22-2019 : 1935 Admission Diagnosis: Attending: DANNI GARCIA Current LOS: 2 Anticipated DC Date: Planned Disposition: Nursing Facility [facility] Cert Primary Insurance: MEDICARE A & B PLANNED EXTERNAL PROVIDER: [facility], CIRCULATION SALES REPRESENTATIVE CARE MEDICAID BED Discharge Planning Comments: CM MET WITH PT AND SONMARCO IN ROOM TO DISCUSS DISCHARGE NEEDS AND PLANNING. PT AND SON REPORT PT LIVES AT [facility] AND WILL RETURN THERE AT DISCHARGE. CHOICE LETTER SIGNED. Potato Seed Cutter: Rodrigo Case DCPIA - Discharge Planning Initial Assessment Updated by [id number]: Rodrigo Case on 01/24/19 5:02 pm * Is the patient Alert and Oriented? Yes * How many steps to enter\exit or inside your home? NONE * PCP [facility] * Pharmacy [facility] * Preadmission Environment [facility] * Facility Name [facility] * ADLs Partial Dependent * Partial ADLs (Assistance needed) Ambulation Bathing Medication Management Toileting Transfers * Equipment Nebulizer Oxygen Walker Wheelchair * Other Equipment ALL MEDICAL EQUIPMENT PROVIDED BY [facility] * List name and contact numbers for known caregivers / representatives who currently or will assist patient after discharge: HARRISON LARA, HARRISON SHANNON, * Verbal permission to speak to the caregivers and representatives has been obtained from the patient. Yes * Community resources currently utilized None * Please name any agencies selected above. NONE * Additional services required to return to the preadmission environment? No * Can the patient safely return to the preadmission environment? Yes * Has this patient been hospitalized within the prior 30 days at any hospital? No Coverage Notice Reviewer: [id number] Chucho Case Notice Issued Date-Time: 01/24/2019 13:10 Notice Type: Patient Choice Letter Notice Delivered To: Family Member Relationship to Patient: Son Florist Name: MARCO Delivery Method: HAND - Hand Delivered Zahida Days: Prior Verbal Notification: Recipient Understood Notice: Yes Recipient Signature: Yes Med Rec Note Co-signed by Attending: Coverage Notice Comment: [facility] Reviewer: [id number] Chucho Case Notice Issued Date-Time: 01/29/2019 9:20 Notice Type: IM Discharge Notice Notice Delivered To: Patient Relationship to Patient: Florist Name: Delivery Method: HAND - Hand Delivered Zahida Days: Prior Verbal Notification: Recipient Understood Notice: Yes Recipient Signature: Yes Med Rec Note Co-signed by Attending: Coverage Notice Comment: Last DP export: 01/28/19 10:11 am Patient Name: RASHEL DURON Page 91002 at 0940 All edits/amendments must be made on the electronic document DICTATION DATE: 01/29/19938 NUCLEAR PHYSICS TEACHER: DM 01/29/19938 RPT#: [id number] DC DATE: STATUS: ADM IN [facility] [address] [place] [address] END OF REPORT
--- NOTE | 2019-01-29 09:47 | MORECARE ---
CASE MANAGEMENT DISCHARGE SUMMARY PATIENT: RASHEL DURON UNIT: [id number] ADM DATE: 01/22/19 AGE: 83 : 36 SEX: F ROOM/BED: D.2130 AUTHOR: CALR,DOC PHYSICIAN: REFERRING PHYSICIAN: DANIN GARCIA MD DATE OF SERVICE: 01/29/19 Discharge Plan Patient Name: RASHEL DURON Facility: [facility]:[place] : 1935 Planned Disposition: [facility] Facility Anticipated Discharge Date: 01/29/19 Discharge Date: Expected LOS: 7 Initial Reviewer: [id number] Initial Review Date: 01/22/2019 Generated: 01/29/19 10:47 am Comments DCP- Discharge Planning Updated by [email or web address]: Rodrigo Case on 01/29/19 8:[address] Patient Name: RASHEL DURON Encounter No: [id number] : 1935 Primary Insurance: MEDICARE A & B Anticipated DC Date: 01-29-2019 Planned Disposition: [facility] Facility External Planned Provider: [facility], MEDICARE REHAB BED Discharge Planning Comments: CM RECEIVED INPATIENT REHAB PRESCREENING ORDER. CM CALLED [facility], , SPOKE TO MARYSOL, INDUSTRIAL ENGINEERING MANAGER WHO VERIFIED THAT PT DOES LIVE AT FACILITY, PT WAS RECEIVING THERAPY SERVICES PRIOR TO HOSPITAL ADMISSION AND CAN CONTINUE TO RECEIVE THEM UPON RETURN. CM MET WITH PT IN ROOM, DISCUSSED REHAB PRESCREENING ORDER [facility] THERAPY SERVICES, PROVIDERS AND AVAILABILITY. PT WOULD LIKE TO BE EVAULATED FOR REHAB AT [place] AND FEELS THAT SHE WOULD RECEIVE A HIGHER QUALITY OF REHAB SERVICES HERE. PT STATES IF DECLINED, SHE WILL RETURN TO [facility]. PT REPORTS ABILITY TO SIT FOR VAN TRANSPORT. IMPORTANT MESSAGE FROM MEDICARE PROVIDED AND EXPLAINED. FOR DISCHARGE BACK TO [facility], FAX DISCHARGE INFORMATION TO [facility] AT [phone]. CALL NURSE REPORT TO [facility] AT [phone]. [facility] TO [facility] VAN TRANSPORTATION. CM WAITING ON INPATIENT REHAB PRECREENING FOR [facility] INPATIENT REHAB. IF DECLINED FOR INPATIENT REHAB, PT WILL RETURN TO [facility] FOR CONTINUED THERAPY SERVICES THERE. Side Hemmer: Rodrigo Case DCP- Discharge Planning Updated by [id number]: Rodrigo Case on 01/28/19 10:[address] Patient Name: RASHEL DURON Encounter No: [id number] : 1935 Primary Insurance: MEDICARE A & B Anticipated DC Date: Planned Disposition: Nursing Facility [facility] Cert External Planned Provider: [facility], HALF-WAY CARE MEDICAID BED Discharge Planning Comments: CM FAXED UPDATE TO [facility], . FOR DISCHARGE BACK TO [facility], FAX DISCHARGE INFORMATION TO [facility] AT [phone]. CALL NURSE REPORT TO [facility] AT [phone]. [facility] TO ARRANGE VAN TRANSPORTATION. Side Hemmer: Rodrigo Case DCP- Discharge Planning Updated by [id number]: Rodrigo Case on 01/24/19 4:[address] Patient Name: RASHEL DURON Admission Status: ER Accout number: [id number] Admission Date: 01-22-2019 : 1935 Admission Diagnosis: Attending: DANNI GARCIA Current LOS: 2 Anticipated DC Date: Planned Disposition: Nursing Facility [facility] Primary Insurance: MEDICARE A & B PLANNED EXTERNAL PROVIDER: [facility], [facility] MEDICAID BED Discharge Planning Comments: CM MET WITH PT AND SONMARCO IN ROOM TO DISCUSS DISCHARGE NEEDS AND PLANNING. PT AND SON REPORT PT LIVES AT [facility] AND WILL RETURN THERE AT DISCHARGE. CHOICE LETTER SIGNED. Side Hemmer: Rodrigo Case MAPIA - Discharge Planning Initial Assessment Updated by [email or web address]: Rodrigo Case on 01/24/19 5:02 pm * Is the patient Alert and Oriented? Yes * How many steps to enter\exit or inside your home? NONE * PCP [facility] MEDICAL [facility] * Pharmacy [facility] * Preadmission Environment [facility] * Facility Name [facility] * ADLs Partial Dependent * Partial ADLs (Assistance needed) Ambulation Bathing Medication Management Toileting Transfers * Equipment Nebulizer Oxygen Walker Wheelchair * Other Equipment ALL MEDICAL EQUIPMENT PROVIDED BY [facility] * List name and contact numbers for known caregivers / representatives who currently or will assist patient after discharge: HARRISON LARA, SHIVA SON, * Verbal permission to speak to the caregivers and representatives has been obtained from the patient. Yes * Community resources currently utilized None * Please name any agencies selected above. NONE * Additional services required to return to the preadmission environment? No * Can the patient safely return to the preadmission environment? Yes * Has this patient been hospitalized within the prior 30 days at any hospital? No Coverage Notice Reviewer: [id number] Case Notice Issued Date-Time: 01/24/2019 13:10 Notice Type: Patient Choice Letter Notice Delivered To: Family Member Relationship to Patient: Son Tailer Off Name: MARCO Delivery Method: HAND - Hand Delivered Zahida Days: Prior Verbal Notification: Recipient Understood Notice: Yes Recipient Signature: Yes Med Rec Note Co-signed by Attending: Coverage Notice Comment: [facility] Reviewer: [id number] Case Notice Issued Date-Time: 01/29/2019 9:20 Notice Type: IM Discharge Notice Notice Delivered To: Patient Relationship to Patient: Tailer Off Name: Delivery Method: HAND - Hand Delivered Zahida Days: Prior Verbal Notification: Recipient Understood Notice: Yes Recipient Signature: Yes Med Rec Note Co-signed by Attending: Coverage Notice Comment: Last DP export: 01/29/19 8:39 a Patient Name: RASHEL DURON Page [phone] at 0947 All edits/amendments must be made on the electronic document DICTATION DATE: 01/29/19945 LINUX SYSTEMS ADMINISTRATOR: JESSE 01/29/19945 RPT#: [id number] DC DATE: STATUS: ADM IN [facility] [address] [place] [address] END OF REPORT
--- NOTE | 2019-01-29 11:01 | NUR ---
ALERT AND ORIENTED. UP WITH PT. RIGHT HAND IV WITH NS AT 50. ROGERS CATH TO BEDSIDE DRAINAGE. SCDS ON. DENIES ANY NEEDS. SR UP WITH CALL LIGHT IN REACH. WILL MONITOR
[2019-01-29 12:16] VITALS: BP 136/74
--- NOTE | 2019-01-29 12:43 | MORECARE ---
CASE MANAGEMENT DISCHARGE SUMMARY PATIENT: RASHEL DURON UNIT: [id number] ADM DATE: 01/22/19 AGE: 83 : 36 SEX: F ROOM/BED: D.2130 AUTHOR: SHAWN HENRY PHYSICIAN: REFERRING PHYSICIAN: DANNI GARCIA MD DATE OF SERVICE: 01/29/19 Discharge Plan Patient Name: RASHEL DURON Facility: [facility]:[place] : 1935 Planned Disposition: Inpatient Rehab Anticipated Discharge Date: 01/29/19 Discharge Date: Expected LOS: 7 Initial Reviewer: [id number] Initial Review Date: 01/22/2019 Generated: 01/29/19 1:43 pm Comments DCP- Discharge Planning Updated by [id number]: Rodrigo Rush on 01/29/19 11:[address] Patient Name: RASHEL DURON Encounter No: [id number] : 1935 Primary Insurance: MEDICARE A & B Anticipated DC Date: 01-29-2019 Planned Disposition: Inpatient Rehab External Planned Provider: [facility] INPATIENT REHAB DCP follow-up note: CM SPOKE TO KATIA OF INPATIENT REHAB, THEY PLAN TO ACCEPT PT TODAY FOR REHAB IF MEDICALLY STABLE. KATIA HAD SPOKEN TO PT AND PTS SON IN ROOM, BOTH IN AGREEMENT WITH INPATIENT REHAB. JACKY STALEY NOTIFIED. CM CALLED [facility], , LEFT MESSAGE FOR MARYSOL, CONCRETE CONVEYOR OPERATOR, OF PT'S DISCHARGE TO [facility] INPATIENT REHAB TODAY. [facility] INPATIENT REHAB TO CONTACT MED 2 NURSE WITH ROOM NUMBER WHEN READY TO ACCEPT PT AND NURSE REPORT. RODRIGO RUSH, CASE MANAGEMENT DCP- Discharge Planning Updated by [id number]: Rodrigo Rush on 01/29/19 8:[address] Patient Name: RASHEL DURON Encounter No: [id number] : 1935 Primary Insurance: MEDICARE A & B Anticipated DC Date: 01-29-2019 Planned Disposition: Long Term Facility External Planned Provider: [facility], MEDICARE REHAB BED Discharge Planning Comments: CM RECEIVED INPATIENT REHAB PRESCREENING ORDER. CM CALLED [facility], , SPOKE TO MARYSOL, CONCRETE CONVEYOR OPERATOR WHO VERIFIED THAT PT DOES LIVE AT FACILITY, PT WAS RECEIVING THERAPY SERVICES PRIOR TO HOSPITAL ADMISSION AND CAN CONTINUE TO RECEIVE THEM UPON RETURN. CM MET WITH PT IN ROOM, DISCUSSED REHAB PRESCREENING ORDER WELL THERAPY SERVICES, PROVIDERS AND AVAILABILITY. PT WOULD LIKE TO BE EVAULATED FOR REHAB AT [place] AND FEELS THAT SHE WOULD RECEIVE A HIGHER QUALITY OF REHAB SERVICES HERE. PT STATES IF DECLINED, SHE WILL RETURN TO [facility]. PT REPORTS ABILITY TO SIT FOR VAN TRANSPORT. IMPORTANT MESSAGE FROM MEDICARE PROVIDED AND EXPLAINED. FOR DISCHARGE BACK TO [facility], FAX DISCHARGE INFORMATION TO [facility] AT [phone]. CALL NURSE REPORT TO [facility] AT [phone]. [facility] TO ARRANGE VAN TRANSPORTATION. CM WAITING ON INPATIENT REHAB PRECREENING FOR [facility] INPATIENT REHAB. IF DECLINED FOR INPATIENT REHAB, PT WILL RETURN TO [facility] FOR CONTINUED THERAPY SERVICES THERE. Limousine Driver: Rodrigo Rush DCP- Discharge Planning Updated by [id number]: Rodrigo Rush on 01/28/19 10:[address] Patient Name: RASHEL DURON Encounter No: [id number] : 1935 Primary Insurance: MEDICARE A & B Anticipated DC Date: Planned Disposition: Nursing Facility [facility] Cert External Planned Provider: [facility], PENITENTIARY CARE MEDICAID BED Discharge Planning Comments: CM FAXED UPDATE TO [facility], . FOR DISCHARGE BACK TO PENITENTIARY CARE, FAX DISCHARGE INFORMATION TO [facility] AT [phone]. CALL NURSE REPORT TO [facility] AT [phone]. [facility] TO AR[facility]ANGE VAN TRANSPORTATION. Limousine Driver: Rodrigo Rush DCP- Discharge Planning Updated by [id number]: Rodrigo Rush on 01/24/19 4:[address] Patient Name: RASHEL DURON Admission Status: ER Accout number: [id number] Admission Date: 01-22-2019 : 1935 Admission Diagnosis: Attending: DANNI GARCIA Current LOS: 2 Anticipated DC Date: Planned Disposition: Nursing Facility [facility] Cert Primary Insurance: MEDICARE A & B PLANNED EXTERNAL PROVIDER: [facility], LONG TERM CARE MEDICAID BED Discharge Planning Comments: CM MET WITH PT AND SONMARCO IN ROOM TO DISCUSS DISCHARGE NEEDS AND PLANNING. PT AND SON REPORT PT LIVES AT [facility] AND WILL RETURN THERE AT DISCHARGE. CHOICE LETTER SIGNED. Limousine Driver: Rodrigo Rush DCPIA - Discharge Planning Initial Assessment Updated by [id number]: Rodrigo Rush on 01/24/19 5:02 pm * Is the patient Alert and Oriented? Yes * How many steps to enter\exit or inside your home? NONE * PCP [facility] * Pharmacy [facility] * [facility] * Facility Name [facility] * ADLs Partial Dependent * Partial ADLs (Assistance needed) Ambulation Bathing Medication Management Toileting Transfers * Equipment Nebulizer Oxygen Walker Wheelchair * Other Equipment ALL MEDICAL EQUIPMENT PROVIDED BY [facility] * List name and contact numbers for known caregivers / representatives who currently or will assist patient after discharge: HARRISON LARA, HARRISON SHANNON, * Verbal permission to speak to the caregivers and representatives has been obtained from the patient. Yes * Community resources currently utilized None * Please name any agencies selected above. NONE * Additional services required to return to the preadmission environment? No * Can the patient safely return to the preadmission environment? Yes * Has this patient been hospitalized within the prior 30 days at any hospital? No Coverage Notice Reviewer: [id number] Chucho Rush Notice Issued Date-Time: 01/24/2019 13:10 Notice Type: Patient Choice Letter Notice Delivered To: Family Member Relationship to Patient: Son Hockey Scout Name: MARCO Delivery Method: HAND - Hand Delivered Zahida Days: Prior Verbal Notification: Recipient Understood Notice: Yes Recipient Signature: Yes Med Rec Note Co-signed by Attending: Coverage Notice Comment: [facility] Reviewer: [id number] Chucho Rush Notice Issued Date-Time: 01/29/2019 9:20 Notice Type: IM Discharge Notice Notice Delivered To: Patient Relationship to Patient: Hockey Scout Name: Delivery Method: HAND - Hand Delivered Zahida Days: Prior Verbal Notification: Recipient Understood Notice: Yes Recipient Signature: Yes Med Rec Note Co-signed by Attending: Coverage Notice Comment: Last DP export: 01/29/19 8:47 a Patient Name: RASHEL DURON Page [id number] at 1243 All edits/amendments must be made on the electronic document DICTATION DATE: 01/29/191242 KILN MECHANIC: JESSE 01/29/191242 RPT#: [id number] DC DATE: STATUS: ADM IN [facility] [address] [place] [address] END OF REPORT
[2019-01-29] MEDS ORDERED: LOVENOX120 MG/0.8 SC (13:46)
[2019-01-29] MEDS ORDERED: ZOSYN 2.25 GM2.25 G1 IVPB (13:46)
[2019-01-29] MEDS ORDERED: AMIODARONE HCL200 MG PO (13:47)
[2019-01-29] MEDS ORDERED: NORVASC10 MG PO (13:47)
[2019-01-29] MEDS ORDERED: HUMULIN R100 U/ML SC (13:50)
[2019-01-29] MEDS ORDERED: DIFLUCAN100 MG PO (13:52)
--- NOTE | 2019-01-29 13:54 | NUR ---
PT C/O NAUSEA. PRN ZOFRAN GIVEN.
--- NOTE | 2019-01-29 16:15 | NUR ---
PT ASLEEP IN BED, AWAITING D/C TO REHAB. NO NEEDS AT THIS TIME.
--- NOTE | 2019-01-29 16:48 | NUR ---
OT NOTE: PT COMPLETED UE AAROM. PT COMPLETED FACE WASHING AND HAIR GROOMING WITH MIN A SECONDARY TO ACTIVITY TOLERANCE. PT ENTHUSED THAT IS GOING TO IP. PT REQUIRED EXTENSIVE VERBAL CUES FOR INCREASED PARTICIPATION. PT CUES TO OPEN EYES. THANK YOU, NIGEL VEE
[2019-01-29 17:37] VITALS: BP 136/48
--- NOTE | 2019-02-03 18:38 | EC ---
PATIENT:RASHEL DURON DATE OF SERVICE: 01/22/19 SEX: F MEDICAL RECORD: [id number] DATE OF : 37 LOCATION:D.M2 D.213 AGE OF PATIENT: 83 ADMISSION DATE: 01/22/19 REFERRING PHYSICIAN: INTERPRETING PHYSICIAN: NORBERTO NICE MD ECHOCARDIOGRAM REPORT ECHO CHARGES 4 ECHO COMPLETE Date: 01/23/19 CLINICAL DIAGNOSIS: SOB/ELEVATED CARDIAC ENZYMES H/O CHF/PULMONARY HTN ECHOCARDIOGRAPHIC MEASUREMENTS (adult normal given) AC root (d.<3.7cm) 3.5 cm LV Septum d (<1.2 cm> 1.6 cm Valve Excursion 2.4 cm LV Septum (systole) 2.1 cm Left Atria (s.<4.0cm> 4.5 cm LVPW d(<1.2cm) 1.5 cm RV (d.<2.3cm) 3.5 cm LVPW (sytole) 2.0 cm LV diastole(<5.6CM) 5.4 cm MV E-F(>70mm/sec) cm LV systole 3.5 cm LVOT Diameter 2.1 cm MV exc.(>10mm) cm Est.ejection fraction (50-75%) % DOPPLER: LVIT cm/sec A 62.0 cm/sec E 48.0 cm/sec LA cm/sec RVSP 81.0 mmHg LVOT 95.0 cm/sec AOP1/2T m/s Asc. Ao 120 cm/sec RVOT 45.0 cm/sec RA cm/sec PA 61.0 cm/sec AV Gradient Peak 5.7 mmHg AV Mean 3.2 mmHg AV Area 2.9 cm MV Gradient Peak 2.5 mmHg MV Mean 0.76 mmHg MV Area cm COMMENTS: Project Controls Scheduler: James SIDHUOE Production Line Technician: 1 Dr. Nice TAPE# PACS Pericardial Effusion Y DATE OF SERVICE: 01/23/2019 ECHOCARDIOGRAM DATE OF SERVICE: 01/23/2019 FINDINGS: 1. Left ventricular chamber size is within normal limits. Left ventricular systolic function is mildly depressed at 40%. 2. Left ventricular hypertrophy is present, concentric, with no evidence of ECHOCARDIOGRAM REPORT [id number] RASHEL DURON outflow tract hypertrophy. 3. Left atrium is enlarged at 4.5 cm. Right atrium and right ventricular chamber sizes are as well mildly dilated. 4. There is an echogenic structure in the right ventricle that appears to be compatible with thrombus versus mass. 5. Valvular structures have normal structure and motion. 6. Doppler interrogation reveals mild mitral regurgitation, severe tricuspid regurgitation, no other valvular insufficiency or stenosis. 7. No evidence of pericardial effusion or left ventricular thrombus. TRANSINT:[id number] Voice Confirmation ID: [id number] DOCUMENT ID: [id number] NORBERTO NICE MD at 1838 CC: [id number] DICTATION DATE: 01/24/19818 SUPPLY MANAGER: 01/24/1928 DIS IN 01/29/19 [facility] [address] [place] [address]
== END 2019-01-29 20:19 | DRG 871 ==
LOC: D.ER 18:04 → D.M2 18:41 → D.ICU 18:41 → D.M2 01-23 17:09 → D.MS 01-25 15:30 → D.ICU 01-25 15:32 → D.M2 01-27 17:11
PROVIDERS: Family Medicine; Internal Medicine Pulmonary Disease; ADMIT Internal Medicine Nephrology; ATTEND Internal Medicine Nephrology
DX: A41.9 Sepsis, unspecified organism (principal); J96.21 Acute and chronic respiratory failure with hypoxia; I50.23 Acute on chronic systolic (congestive) heart failure; N39.0 Urinary tract infection, site not specified; I24.8 Other forms of acute ischemic heart disease; E87.1 Hypo-osmolality and hyponatremia; I11.0 Hypertensive heart disease with heart failure; Z86.73 Personal history of transient ischemic attack (TIA), and cerebral infarction without residual deficits; I25.10 Atherosclerotic heart disease of native coronary artery without angina pectoris; K21.9 Gastro-esophageal reflux disease without esophagitis; I27.20 Pulmonary hypertension, unspecified; D64.9 Anemia, unspecified; B96.20 Unspecified Escherichia coli [E. coli] as the cause of diseases classified elsewhere; I08.1 Rheumatic disorders of both mitral and tricuspid valves; E66.01 Morbid (severe) obesity due to excess calories; Z68.36 Body mass index [BMI] 36.0-36.9, adult

== ENCOUNTER 2019-01-29 18:50 | Inpatient (IN) | payer MEDICARE, BC ==
[~2019-01-29] VITALS: Ht 172.7 cm; Wt 105.7 kg
[~2019-01-29 18:50] MED LIST: ACETAMINOPHEN500 M1 PO; AMIODARONE HCL200 MG PO; ARTIFICIAL TEAR15 ML EACH EYE; ASPIRIN81 MG PO; BUMEX2 MG PO; CALCIUM 600 +1 EAC3 PO; CLARITIN 10 MG10 MG PO; CLONIDINE HCL 0.1 MG PO; COREG12.5 MG PO; COZAAR50 MG PO; CYCLOBENZAPRINE10 MG PO; CYCLOBENZAPRINE5 MG PO; DIFLUCAN100 MG PO; HUMULIN R100 U/ML SC; IPRAT-ALBUT 0.5-3 ML INH; LAMISIL AT12 G1 TOPICAL; LIDODERM 5 %1 PATCH TD; LIPITOR10 MG PO; LOVENOX120 MG/0.8 SC; MUCINEX600 MG PO; MYLANTA / MAALO30 ML PO; NEURONTIN 300300 MG PO; NEURONTIN 400400 MG PO; NORVASC10 MG PO; NYSTATIN1 PWD TOPICAL; OXYBUTYNIN CHLORIDE PO; PAXIL10 MG PO; PHENAZOPYRIDINE HCL PO; PHENERGAN25 M1 PO; POTASSIUM CHLORIDE E PO; PROTONIX FOR OR40 MG PO; SILDENAFIL CITRATE PO; VISTARIL25 MG PO; VITAMIN D31000 UNIT PO; ZOFRAN4 MG PO; ZOSYN 2.25 GM2.25 G1 IVPB
[2019-01-29 21:06] VITALS: BP 107/71
--- NOTE | 2019-01-30 01:30 | NUR ---
PT NEEDS ANTIBIOTIC STARTED BUT MED SURG PULLED IV WITH 12 DOSES LEFT NEEDING HUNG, 3 ATTEMPTS MADE WITHOUT SUCCESS, NURSE FROM MED III ATTEMPTED ONCE, STATED HE NEEDED A VEIN FINDER LEFT AND NEVER CAME BACK, CALLED NURSE TAILINGS DAM PUMPER NURSE FROM MED SURG ATTEMPTED 3 TIMES WITH FINAL SUCCESS ON 3RD TRY, IV PATENT AND FLUSHING WELL IN LEFT AC
[2019-01-30 02:46] VITALS: BP 107/71; BMI 35.5
--- NOTE | 2019-01-30 04:37 | NUR ---
I have reviewed this patient and I concur with the Shift Assessment completed by the Licensed Practical Nurse today this shift.
[2019-01-30 05:38] LABS: APPEARANCE HAZY (CLEAR); BILIRUBIN NEGATIVE (NEGATIVE); COLOR YELLOW (YELLOW); GLUCOSE NEGATIVE (NEGATIVE); KETONE NEGATIVE (NEGATIVE); NITRITE NEGATIVE (NEGATIVE); PROTEIN 1+ mg/dL (NEGATIVE); UROBILINOGEN NORMAL (NORMAL)
[2019-01-30 05:39] LABS: BACTERIA MODERATE /hpf (NONE SEEN); EPITHELIAL CELLS 0-5 /hpf (0-5); RED CELLS - URINE 0-5 /hpf (0-5); YEAST >1+ /hpf (NONE SEEN)
--- NOTE | 2019-01-30 06:49 | NUR ---
PT IN BED LOWEST POSITION, EYES CLOSED, AROUSES EASILY, RESPIRATIONS EVEN AND UNLABORED, NO IMMEDIATE NEEDS NOTED, FLUIDS AND CALL LIGHT WITHIN REACH
[2019-01-30 07:22] LABS: ANION GAP 13.7 mmol/L (8-16); CALCIUM 8.6 mg/dL (8.5-10.1); CARBON DIOXIDE 22.1 mmol/L (21.0-32.0); CREATININE - SERUM 1.3 mg/dL (0.6-1.3); POTASSIUM - SERUM 3.8 mmol/L (3.5-5.1)
[2019-01-30 07:51] LABS: BASOPHILS 0.2 % (0-2); EOSINOPHILS 3.5 % (0-7); HEMATOCRIT 27.2 % (36.0-48.0); HEMOGLOBIN 9.1 g/dL (12-16); IMMATURE GRANULOCYTES 2.3 % (0-5); LYMPHOCYTES 12.8 % (15-50); MCH 32.5 pg (26.0-34.0); MCHC 33.5 g/dL (31.0-37.0); MCV 97.1 fL (80.0-100.0); MEAN PLATELET VOLUME 11.4 fL (7.4-10.4); NEUTROPHILS 74.2 % (40-80); PLATELET COUNT 290 10x3/uL (130-400); RDW 15.4 % (11.5-14.5); WBC 8.6 10x3/uL (4.8-10.8)
[2019-01-30 08:00] VITALS: BP 153/65
--- NOTE | 2019-01-30 10:40 | NUR ---
PT AM MEDS ADMINISTERED. PT PARTICIPATING IN THERAPY AT THIS TIME. PT DENIES NEEDS. WCTM.
[2019-01-30 13:15] VITALS: Ht 172.7 cm; Wt 105.7 kg
--- NOTE | 2019-01-30 14:44 | NUR ---
SPOKE WITH DR ELDRIDGE. ORDERS FOR MIDLINE OR PICC LINE ACCESS REC'D AND PLACED.
--- NOTE | 2019-01-30 15:07 | NUR ---
VASCULAR ACCESS NURSE PAGED.
[2019-01-31 00:49] VITALS: BP 153/56
--- NOTE | 2019-01-31 04:34 | NUR ---
PT IN BE UPRIGHT ZOSYN RUNNUNG
[2019-01-31 06:18] LABS: BASOPHILS 0.3 % (0-2); EOSINOPHILS 3.2 % (0-7); HEMOGLOBIN 8.6 g/dL (12-16); IMMATURE GRANULOCYTES 1.7 % (0-5); LYMPHOCYTES 12.8 % (15-50); MCH 32.3 pg (26.0-34.0); MCHC 33.1 g/dL (31.0-37.0); MCV 97.7 fL (80.0-100.0); MEAN PLATELET VOLUME 10.7 fL (7.4-10.4); MONOCYTES 7.2 % (2-11); NEUTROPHILS 74.8 % (40-80); PLATELET COUNT 262 10x3/uL (130-400); RBC 2.66 10x6/uL (4.00-5.40); WBC 6.9 10x3/uL (4.8-10.8)
--- NOTE | 2019-01-31 06:46 | NUR ---
PT IN BED LOWEST POSITION, EYES CLOSED, AROUSES EASILY, RESPIRATIONS EVEN AND UNLABORED, NO IMMEDIATE NEEDS NOTED, FLUIDS AND CALL LIGHT WITHIN REACH
[2019-01-31 06:47] LABS: ANION GAP 11.6 mmol/L (8-16); CALCIUM 8.3 mg/dL (8.5-10.1); CREATININE - SERUM 1.3 mg/dL (0.6-1.3); POTASSIUM - SERUM 3.6 mmol/L (3.5-5.1)
[2019-01-31 08:00] VITALS: BP 175/78
--- NOTE | 2019-01-31 09:00 | NUR ---
PT AM MEDS ADMINISTERED. PT MARY FRANK. JANNY.
--- NOTE | 2019-01-31 17:33 | NUR ---
PT SITTING UP IN BED EATING DINNER, DENIES NEEDS. WCTM.
--- NOTE | 2019-01-31 20:00 | NUR ---
PATIENT RECEIVED SITTING UP IN BED WATCHING TV. PATIENT VITAL SIGNS & ASSESSMENT DONE. NO C/O PAIN OR DISTRESS. BED LOW. ALARM ON. CALL LIGHT & BEDSIDE TABLE WITHIN REACH. WILL CONTINUE TO MONITOR.
[2019-01-31 22:01] VITALS: BP 161/72
--- NOTE | 2019-01-31 23:23 | NUR ---
RESTING IN BED WITH RESPRIATIONS UNLABORED. NO DISTRESS NOTED. REMAINS IN CONTACT ISOLATION. CALL LIGHT IN REACH.
--- NOTE | 2019-02-01 02:23 | NUR ---
PATIENT EYES CLOSED. RESPIRATIONS 18 & EVEN. NO ADVERSE REACTION NOTED TO IV ANTIBIOTIC. BED LOW. ALARM ON. CALL LIGHT & BEDSIDE TABLE WITHIN REACH. WILL CONTINUE TO MONITOR.
[2019-02-01 08:00] VITALS: BP 175/80
--- NOTE | 2019-02-01 08:00 | NUR ---
shift assmt completed.up to bathroom with walker.incont of stool.cleaned.up to wc for therapy.to tx room with breakfast.
--- NOTE | 2019-02-01 12:00 | NUR ---
sitting up at bedside in for lunch.family visiting.
--- NOTE | 2019-02-01 16:00 | NUR ---
RESTING QUIETLY.CL IN REACH.
--- NOTE | 2019-02-01 19:39 | NUR ---
PT SITTING UP IN BED WATCHING TV. CL IN REACH. DENIES NEEDS AT THIS TIME. BED IN LOW SIDE RAILS X2. RESP EVEN AND UNLABORED. WCTM
[2019-02-01 20:13] VITALS: BP 165/67
--- NOTE | 2019-02-02 00:41 | NUR ---
I have reviewed this patient and I concur with the Shift Assessment completed by the Licensed Practical Nurse today this shift.
--- NOTE | 2019-02-02 00:47 | NUR ---
PT. RESTING QUIETLY WITH EYES CLOSED. O2 AT 2L IN USE VIA NC. RESPIRATIONS EVEN. NO S/S OF DISTRESS. SR UP X 2. BED IN LOWEST POSITION. CALL LIGHT IN REACH.
--- NOTE | 2019-02-02 03:31 | NUR ---
pt resting quietly. eyes closed. no distress noted. cl in reach. wctm
[2019-02-02 08:00] VITALS: BP 165/73
--- NOTE | 2019-02-02 08:00 | NUR ---
SHIFT ASSMT COMPLETED.BREAKFAST GIVEN.FC PATENT.
--- NOTE | 2019-02-02 12:00 | NUR ---
DEEPA FC BLADDER TRAINING.SITTING UP IN BED.
--- NOTE | 2019-02-02 18:51 | NUR ---
PATIENT IS RESTING IN HER BED WATCHING TV. DENIES ANY NEEDS.
[2019-02-02 20:46] VITALS: BP 161/65
--- NOTE | 2019-02-03 | NUR ---
PATIENT IS AWAKE. PILLOWS RE-ADJUSTED FOR COMFORT. ROGERS UNCLAMPED.
--- NOTE | 2019-02-03 04:00 | NUR ---
PATIENT IS RESTING IN BED WITH EYES CLOSED.
[2019-02-03 06:58] LABS: BASOPHILS 0.6 % (0-2); EOSINOPHILS 4.3 % (0-7); HEMATOCRIT 26.9 % (36.0-48.0); HEMOGLOBIN 8.9 g/dL (12-16); IMMATURE GRANULOCYTES 0.6 % (0-5); LYMPHOCYTES 16.6 % (15-50); MCH 32.5 pg (26.0-34.0); MCHC 33.1 g/dL (31.0-37.0); MCV 98.2 fL (80.0-100.0); MEAN PLATELET VOLUME 10.6 fL (7.4-10.4); MONOCYTES 12.2 % (2-11); NEUTROPHILS 65.7 % (40-80); PLATELET COUNT 295 10x3/uL (130-400); RBC 2.74 10x6/uL (4.00-5.40); RDW 16.3 % (11.5-14.5); WBC 5.1 10x3/uL (4.8-10.8)
[2019-02-03 07:15] LABS: ANION GAP 12.9 mmol/L (8-16); CALCIUM 8.8 mg/dL (8.5-10.1); CARBON DIOXIDE 27.6 mmol/L (21.0-32.0); POTASSIUM - SERUM 3.5 mmol/L (3.5-5.1)
[2019-02-03 08:00] VITALS: BP 166/62
--- NOTE | 2019-02-03 08:00 | NUR ---
SITTING UP IN WC IN ROOM EATING BREAKFAST. IS ALERT AND ORIENTED. CALL LIGHT IN REACH. ON ISOLATION,.
--- NOTE | 2019-02-03 13:59 | NUR ---
SITTING UP IN WC IN ROOM. WEARS OXYGEN AND SITS IN WC OFTEN. USES WALKER AT TIMES FOR AMBULATION ASST. CALL LIGHT IN REACH
--- NOTE | 2019-02-03 14:53 | NUR ---
PATIENT ADMITTED TO REHAB FROM ACUTE FLOOR. PATIENT RESIDES AT [facility] IN A CHIP TUNER BED. PHONE , FAX . PATIENT WILL DISCHARGE BACK TO FACILITY.WILL CONTINUE TO FOLLOW WITH PATIENT
[2019-02-03 20:10] VITALS: BP 175/70
--- NOTE | 2019-02-03 23:37 | NUR ---
PT IN BED LOWEST POSITION, EYES CLOSED, AROUSES EASILY TO VOICE, NO NEEDS NOTED, RESPIRATIONS EVEN AND UNLABORED, FLUIDS AND CALL LIGHT WITHIN REACH
[2019-02-04 08:00] VITALS: BP 161/74
--- NOTE | 2019-02-04 10:04 | NUR ---
PT AM MEDS ADMINISTERED. PT IN BED RESTING AT THIS TIME. C/O BACK PAIN. TRAMADOL REQ AND REC'D. WCTM.
[2019-02-04 19:28] VITALS: BP 116/68
--- NOTE | 2019-02-04 19:28 | NUR ---
GREETED PATIENT AND INTRODUCED MYSELF. PATIENT IS SITTING IN WHEELCHAIR. DENIES ANY NEEDS AT THIS TIME. CALL LIGHT IN REACH. VITAL SIGNS OBTAINED.
--- NOTE | 2019-02-04 21:40 | NUR ---
ASSISTED PATIENT TO BATHROOM USING WHEELCHAIR. PATIENT IS MOVING VERY SLOW AND SEEMS TO HAVE SOME MOBILITY PROBLEMS, WILL LEAVE A NOTE FOR THERAPY TO ADDRESS THIS ISSUE TOMORROW. PATIENT BACK TO BED AND REPOSITIONED FOR COMFORT. CALL LIGHT IN REACH.
--- NOTE | 2019-02-05 01:36 | NUR ---
PT. RESTING QUIETLY WITH EYES CLOSED. RESPIRATIONS EVEN. NO S/S OF DISTRESS. SR UP X 2. BED IN LOWEST POSITION. O2 AT 3L IN USE VIA NC. CALL LIGHT IN REACH.
--- NOTE | 2019-02-05 05:20 | NUR ---
ASSISTED PATIENT TO BATHROOM USING WALKER. PATIENT BACK TO BED AND REPOSITIONED FOR COMFORT. CALL LIGHT IN REACH.
[2019-02-05 07:50] LABS: BASOPHILS 0.4 % (0-2); EOSINOPHILS 2.8 % (0-7); HEMATOCRIT 28.2 % (36.0-48.0); HEMOGLOBIN 9.2 g/dL (12-16); IMMATURE GRANULOCYTES 0.2 % (0-5); LYMPHOCYTES 15.3 % (15-50); MCH 32.2 pg (26.0-34.0); MCHC 32.6 g/dL (31.0-37.0); MCV 98.6 fL (80.0-100.0); MEAN PLATELET VOLUME 10.1 fL (7.4-10.4); MONOCYTES 9.3 % (2-11); PLATELET COUNT 299 10x3/uL (130-400); RBC 2.86 10x6/uL (4.00-5.40); RDW 16.7 % (11.5-14.5)
[2019-02-05 08:00] VITALS: BP 154/57
--- NOTE | 2019-02-05 08:00 | NUR ---
PATIENT REMAINS IN CONTACT ISOLATION. ALERT/ORIENT. CALL LIGHT WITHIN REACH. VOICES NO NEEDS AT THIS TIME. WILL CONTINUE WITH PLAN OF CARE
[2019-02-05 08:09] LABS: ANION GAP 15.2 mmol/L (8-16); CALCIUM 8.8 mg/dL (8.5-10.1); CARBON DIOXIDE 27.2 mmol/L (21.0-32.0); CREATININE - SERUM 1.1 mg/dL (0.6-1.3); POTASSIUM - SERUM 3.4 mmol/L (3.5-5.1)
--- NOTE | 2019-02-05 09:00 | NUR ---
I have reviewed this patient and I concur with the Shift Assessment completed by the Licensed Practical Nurse today this shift.
--- NOTE | 2019-02-05 10:00 | NUR ---
PATIENT IN REHAB ROOM. WORKING WITH PHYSICAL THERAPIST. DENIES ANY PAIN/DISC AT THIS TIME.
--- NOTE | 2019-02-05 13:25 | NUR ---
PATIENT RETURNED TO ROOM AFTER OCCUPATIONAL THERAPY. REQUEST PRN PAIN MEDICATION
--- NOTE | 2019-02-05 13:54 | NUR ---
Nutrition Follow Up: Chart reviewed Diet: ANY; Glucerna TID PO Intake: 81% meal avg BM: 02/04/19 Labs reviewed Meds noted including Bumex Rec continue current diet, supplement regimen. RD following.
--- NOTE | 2019-02-05 14:47 | NUR ---
CARE TEAM MEETING: PATIENT PROGRESSING IN THERAPY. TENATIVE DISCHARGE DATE IS 02/13/19. HER FAMILY ATTENDED MEETING. QUESTIONS AND CONCERNS WERE ADDRESSED. WILL CONTINUE TO FOLLOW WITH PATIENT.
--- NOTE | 2019-02-05 19:30 | NUR ---
GREETED PATIENT AND INTRODUCED MYSELF. PATIENT IS LAYING IN BED IN SUPINE POSITION WITH O2 IN USE AT 3L VIA NC. STATES HER PAIN IS 6/10 IN NECK, BACK AND LEFT SHOULDER. I TOLD PATIENT THAT I WOULD CHECK AND SEE WHEN SHE HAD HER LAST PRN PAIN MEDICATION AND IF IT WAS TIME WOULD ADMINISTER. CALL LIGHT IN REACH.
--- NOTE | 2019-02-05 19:34 | NUR ---
ADMINISTERED PRN PAIN MEDICATION FOR PAIN LOCATED IN NECK, BACK AND LEFT SHOULDER. PATIENT ASKED IF I COULD RUB LOTION ON HER LEGS FOR DRY SKIN. PATIENTS SOCKS REMOVED AND PATIENT REPOSITIONED IN BED. CALL LIGHT IN REACH.
[2019-02-05 20:40] VITALS: BP 157/49
--- NOTE | 2019-02-06 01:01 | NUR ---
PATIENT RESTING QUIETLY WITH EYES CLOSED. O2 IN USE AT 2L VIA NC. RESPIRATIONS EVEN. NO S/S OF DISTRESS. CALL LIGHT IN REACH.
[2019-02-06 08:00] VITALS: BP 132/58
--- NOTE | 2019-02-06 19:30 | NUR ---
GREETED PATIENT AND INTRODUCED MYSELF. PATIENT IS LAYING IN BED WITH O2 AT 3L VIA NC. SAYS SHE IS HAVING PAIN IN HER NECK, LEFT SHOULDER AND BACK BUT DOESNT WANT PRN PAIN MEDICATION AT THIS TIME. CALL LIGHT IN REACH.
[2019-02-06 22:49] VITALS: BP 154/57
[2019-02-07 06:55] LABS: BASOPHILS 0.2 % (0-2); EOSINOPHILS 2.9 % (0-7); HEMATOCRIT 26.8 % (36.0-48.0); HEMOGLOBIN 8.9 g/dL (12-16); IMMATURE GRANULOCYTES 0.4 % (0-5); LYMPHOCYTES 14.1 % (15-50); MCH 32.7 pg (26.0-34.0); MCHC 33.2 g/dL (31.0-37.0); MCV 98.5 fL (80.0-100.0); MEAN PLATELET VOLUME 10.6 fL (7.4-10.4); MONOCYTES 10.8 % (2-11); NEUTROPHILS 71.6 % (40-80); PLATELET COUNT 283 10x3/uL (130-400); RBC 2.72 10x6/uL (4.00-5.40); RDW 16.8 % (11.5-14.5); WBC 4.9 10x3/uL (4.8-10.8)
[2019-02-07 07:11] LABS: ANION GAP 14.3 mmol/L (8-16); CALCIUM 8.5 mg/dL (8.5-10.1); POTASSIUM - SERUM 3.3 mmol/L (3.5-5.1)
[2019-02-07 07:16] LABS: CREATININE - SERUM 1.5 mg/dL (0.6-1.3)
--- NOTE | 2019-02-07 08:00 | NUR ---
PATIENT IS ALERT/OREINT. REMAINS IN CONTACT ISOLATION. CALL LIGHT WITHIN REACH. VOICES NO NEEDS AT THIS TIME. WILL CONTINUE WITH PLAN OF CARE
[2019-02-07 08:31] VITALS: BP 127/53
--- NOTE | 2019-02-07 10:31 | NUR ---
PATIENT IN REHAB ROOM. WORKING WITH PHYISCAL THERAPIST. DENIES ANY PAIN/DISC AT THIS TIME.
--- NOTE | 2019-02-07 16:00 | NUR ---
PATIENT REMAINS IN CONTACT ISOLATION. RESTING IN BED AFTER THERAPY, WATCHING T.V. CALL LIGHT WITHIN REACH
--- NOTE | 2019-02-07 19:29 | NUR ---
THE PATIENT WAS WATCHING TELEVISION WHEN STAFF ENTERED HER ROOM. BED IS IN THE LOW POSITION WITH SIDERAILS X2 AND CALL LIGHT WITHIN REACH. THE PATIENT WAS EDUCATED ON THE USE OF A CALL LIGHT AND DEMONSTRATED UNDERSTANDING VIA TEACHABCK METHOD. THE PATIENT APPEARS COMFORTABLE WITH NO QUESTIONS OR COCNERNS AT THIS TIME.
[2019-02-07 20:24] VITALS: BP 112/61
--- NOTE | 2019-02-08 07:56 | NUR ---
PT SITTING UP IN BED EATING BREAKFAST, DENIES NEEDS. WCTM.
--- NOTE | 2019-02-08 08:50 | NUR ---
WHEN ASSISTING PT TO BR MIDLINE IV CATHETER WAS DISCOVERED LYING ON THE GROUND. CATH TIP WAS INTACT. PT STATED "IT WAS ITCHING LAST NIGHT AND I THOUGHT I FELT SOMETHING." DRESSING CHANGED TO RUE. WCTM.
--- NOTE | 2019-02-08 13:47 | NUR ---
PT EXPERIENCING N/V. PT PROVIDED WITH SPRITE AND ZOFRAN. JANNY.
--- NOTE | 2019-02-08 17:30 | NUR ---
PT EATING DINNER, MARY NEEDS. WCTM.
[2019-02-08 19:45] VITALS: BP 116/64
--- NOTE | 2019-02-08 20:15 | NUR ---
PT IS RESTING IN BED WITH EYES OPEN. ALERT AND ORIENTED X 3. VSS. O2 IS ON @ 3LPM PER NC. NO SOB NOTED. PT NOTED WITH A RASH TO HER BACK AND LEGS. SHE STATES IT REALLY ISNT BOTHERING HER. SR'S ARE UP X 3 IN BED. CALL LIGHT AND BEDSIDE TABLE ARE WITHIN EASY REACH.
--- NOTE | 2019-02-08 22:26 | NUR ---
RESTING IN BED WITH EYES CLOSED. NO DISTRESS NOTED.
--- NOTE | 2019-02-09 00:01 | NUR ---
PT IS RESTING QUIETLY IN BED WITH EYES CLOSED. RESPS ARE EVEN AND UNLABORED. NO ACUTE DISTRESS NOTED.
--- NOTE | 2019-02-09 03:59 | NUR ---
I have reviewed this patient and I concur with the Shift Assessment completed by the Licensed Practical Nurse today this shift.
--- NOTE | 2019-02-09 09:10 | NUR ---
PT AM MEDS ADMINISTERED. APPLIED LOTION TO PT'S BACK AND ARMS. BENADRYL GIVE. RED, SPOTTY, ITCHY RASH REMAINS TO ENTIRE UPPER BODY. PT IN BED, DENIES NEEDS. WCTM.
[2019-02-09 11:55] VITALS: BP 121/49
--- NOTE | 2019-02-09 18:00 | NUR ---
PT EATING DINNER, DENIES NEEDS. WCTM.
--- NOTE | 2019-02-09 19:20 | NUR ---
PT SITTING AT THE SINK BRUSHING HER TEETH. NO ACUTE DISTRESS NOTED.
[2019-02-09 23:35] VITALS: BP 124/71
--- NOTE | 2019-02-09 23:53 | NUR ---
PT IS RESTING IN BED WITH EYES CLOSED. NO DISTRESS NOTED.
--- NOTE | 2019-02-10 00:12 | NUR ---
I have reviewed this patient and I concur with the Shift Assessment completed by the Licensed Practical Nurse today this shift.
--- NOTE | 2019-02-10 04:50 | NUR ---
RESTING IN BED WITH EYES CLOSED.
[2019-02-10 08:00] VITALS: BP 124/59
--- NOTE | 2019-02-10 10:13 | NUR ---
PT AM MEDS ADMINISTERED. PT DENIES NEEDS. WCTM.
[2019-02-10 10:34] LABS: HEMOGLOBIN 9.4 g/dL (12-16); LYMPHOCYTES 25.6 % (15-50); MCH 32.9 pg (26.0-34.0); MCHC 32.4 g/dL (31.0-37.0); MCV 101.4 fL (80.0-100.0); MEAN PLATELET VOLUME 9.7 fL (7.4-10.4); NEUTROPHILS 57.6 % (40-80); PLATELET COUNT 313 10x3/uL (130-400); RBC 2.86 10x6/uL (4.00-5.40); WBC 3.6 10x3/uL (4.8-10.8)
[2019-02-10 10:38] LABS: ANION GAP 14.3 mmol/L (8-16); CALCIUM 8.7 mg/dL (8.5-10.1); CARBON DIOXIDE 25.8 mmol/L (21.0-32.0); CREATININE - SERUM 2.1 mg/dL (0.6-1.3); POTASSIUM - SERUM 5.1 mmol/L (3.5-5.1)
--- NOTE | 2019-02-10 14:19 | NUR ---
Nutrition follow-up: Diet: ANY Glucerna TID PO intake ~75% average of last 9 meals Labs reviewed +BM PO intake remains good at this time RDN following.
--- NOTE | 2019-02-10 19:58 | NUR ---
PT IS RESTING IN BED WITH EYES OPEN. ALERT AND ORIENTED X 3. DENIES ACUTE DISCOMFORT AT THIS TIME. NO NEEDS VOICED. CONTACT PRECAUTIONS OBSERVED. SR'S ARE UP X 2 IN BED. CALL LIGHT AND BEDSIDE TABLE ARE WITHIN EASY REACH.
[2019-02-10 20:05] VITALS: BP 135/52
--- NOTE | 2019-02-11 00:51 | NUR ---
I have reviewed this patient and I concur with the Shift Assessment completed by the Licensed Practical Nurse today this shift.
--- NOTE | 2019-02-11 03:11 | NUR ---
RESTING IN BED WITH EYES CLOSED.
--- NOTE | 2019-02-11 06:22 | NUR ---
PT RESTING IN BED WITH EYES CLOSED.
[2019-02-11 08:00] VITALS: BP 117/37
--- NOTE | 2019-02-11 08:15 | NUR ---
PT RESTING IN BED WITH EYES OPEN CALL LIGHT IN REACH WILL MONITER
--- NOTE | 2019-02-11 14:04 | NUR ---
I have reviewed this patient and I concur with the Shift Assessment completed by the Licensed Practical Nurse today this shift.
--- NOTE | 2019-02-11 18:05 | NUR ---
PT RESTING IN BED WITH EYES OPEN CALL LIGHT IN REACH NO PROBLEMS WILL MONITER
--- NOTE | 2019-02-11 18:06 | NUR ---
PT RESTING IN BED WITH EYES OPEN CALL LIGHT IN REACH NO PROBLEMS WILL MONITER
--- NOTE | 2019-02-11 19:27 | NUR ---
PT SITTING UP IN BED. CL IN REACH. A/O X4. LEGS RED AND ELEVATED. BED IN LOW SIDE RAILS X2. LUNGS CLEAR. BOWEL ACTIVE X4. RESP EVEN AND UNLABORED. DENIES NEEDS AT THIS TIME. O2 ON 3L VIA NC. WCTM
[2019-02-11 20:00] VITALS: BP 130/64
--- NOTE | 2019-02-11 20:30 | NUR ---
PT SITTING UP IN BED. NEEDING ASSISTANCE TO BATHROOM. ASSISTED TO AND FROM. APPLIED ITCH CREAM TO BACK AND BACK OF ARMS. DENIES FURTHER NEEDS. CL IN REACH. MEDS GIVEN. WCTM
--- NOTE | 2019-02-11 22:19 | NUR ---
MEDICAL RECORDS COORDINATOR ASSISTED TO AND FROM BATHROOM. DENIES FURHTER NEEDS. CL IN REACH. CPOC
--- NOTE | 2019-02-12 01:05 | NUR ---
I have reviewed this patient and I concur with the Shift Assessment completed by the Licensed Practical Nurse today this shift.
--- NOTE | 2019-02-12 03:10 | NUR ---
ASSISTED TO AND FROM BATHROOM. BACK IN BED. CL IN REACH. CPOC
--- NOTE | 2019-02-12 05:05 | NUR ---
RESTING QUIETLY. CL IN REACH. NO DISTRESS NOTED. RESP EVEN AND UNLABORED. WCTM O2 ON 3L.
[2019-02-12 07:59] VITALS: BP 137/44
[2019-02-12 08:40] LABS: BASOPHILS 0.9 % (0-2); HEMATOCRIT 26.9 % (36.0-48.0); HEMOGLOBIN 8.7 g/dL (12-16); IMMATURE GRANULOCYTES 0.3 % (0-5); LYMPHOCYTES 28.5 % (15-50); MCH 32.2 pg (26.0-34.0); MCHC 32.3 g/dL (31.0-37.0); MCV 99.6 fL (80.0-100.0); MONOCYTES 11.5 % (2-11); NEUTROPHILS 48.8 % (40-80); PLATELET COUNT 296 10x3/uL (130-400); RDW 16.6 % (11.5-14.5); WBC 3.3 10x3/uL (4.8-10.8)
[2019-02-12 09:00] LABS: ANION GAP 12.3 mmol/L (8-16); CALCIUM 8.9 mg/dL (8.5-10.1); CARBON DIOXIDE 27.8 mmol/L (21.0-32.0); CREATININE - SERUM 2.2 mg/dL (0.6-1.3); POTASSIUM - SERUM 5.1 mmol/L (3.5-5.1)
--- NOTE | 2019-02-12 10:32 | RHP ---
PATIENT: ARSHEL DURON MEDICAL RECORD: [id number] ACCOUNT: [id number] [facility] ADMISSION DATE: 01/29/19 REHABILITATION HISTORY AND PHYSICAL EXAMINATION POST ADMISSION PHYSICIAN EXAMINATION DATE OF ADMISSION: 01/29/2019. ADMITTING DIAGNOSIS: Debility secondary to sepsis. HISTORY OF PRESENT ILLNESS: The patient is an 83-year-old female patient who was admitted from [facility]. She lives in a fci in [place]. She apparently has got a history of CVA, coronary artery disease, pulmonary hypertension, anemia, and constipation. She was transferred to [place] for higher level of care secondary to elevated cardiac enzymes and urosepsis. She has been in and out of the hospital numerous times in the last month for UTI. She was admitted to the ICU with sepsis, hypotensive, and Gram-negative bacteremia. She is found to have ESBL in her blood and has been on contact isolation. She had cardiology and pulmonary consults during her stay. She had a transesophageal echo, which showed an ejection fraction of 30% to 35%, but no vegetations. She has been moved out to the acute floor from the ICU and receiving oxygen and IV antibiotics, electrolyte protocol. She has got dyspnea on exertion, lower extremity swelling. She is on contact isolation continues to have a Zarate catheter. She has got deconditioning, gait disturbance, impaired mobility, shortness of breath. She is high risk for falls and self-care deficits. These are all barriers to discharging her back to the fci at this time. She was ambulating with a rolling walker or a single point cane to the therapy gym prior to these acute episodes. She and her son plan for her regaining strength, endurance, have a better quality of life before being discharged back to [facility] where she resides. COMORBIDITIES: In this patient include UTI, [id number] hypoxic respiratory failure, pulmonary hypertension, diabetes, acute kidney injury, normocytic anemia, electrolyte abnormalities, CVA, demand ischemia, elevated troponin, ESBL E. coli, orthopnea, pulmonary hypertension, morbid obesity. PAST MEDICAL HISTORY: Significant for hypertension, dyslipidemia, coronary artery disease, pulmonary hypertension, diabetes, CVA, TIA, CHF, edema, coronary artery disease, pulmonary hypertension, pneumonia, acid reflux, constipation, chronic back pain, and depression. PAST SURGICAL HISTORY: Includes back surgery and hysterectomy. ALLERGIES: REGLAN. CURRENT MEDICATIONS: Include Diflucan at this time 100 mg daily. She is on Paxil 10 mg daily. She is on a Lidoderm patch as needed, vitamin D 1000 units daily, calcium 500 mg daily, Norvasc 10 mg daily, losartan 50 mg daily, Mucinex 600 mg b.i.d., Tylenol 650 b.i.d., Lovenox 110 mg q.24 hours. She is on DuoNeb updrafts, Protonix 40 mg b.i.d., Zosyn 2.25 grams q.6 hours. She is on a glucose replacement protocol. She is on artificial tears p.r.n., Zofran 4 mg q.4 hours p.r.n., Neurontin 300 mg b.i.d., nystatin powder to apply as needed. She is on a low-resistant sliding scale with insulin, Humulin R, and amiodarone 10 mg b.i.d. HISTORY AND PHYSICAL [id number] RASHEL DURON HABITS: No alcohol or tobacco use. FAMILY HISTORY: Noncontributory. SOCIAL HISTORY: Once again hopes to return back to her fci in [place]. REVIEW OF SYSTEMS: GENERAL: Does complain of weakness and fatigue. HEENT: Denies cold, cough, or congestion. CARDIOVASCULAR: Denies any chest pain. PHYSICAL EXAMINATION: VITAL SIGNS: Stable, afebrile. GENERAL: A morbidly obese female in no acute distress, alert upon exam. HEENT: Normocephalic and atraumatic. Mucosa moist. NECK: Supple. No lymphadenopathy. LUNGS: Clear in upper [place]. HEART: Regular rate and rhythm. She does have a holosystolic murmur. ABDOMEN: Soft, nontender, nondistended. Positive bowel sounds times 4, is noted to be obese. EXTREMITIES: Does have some peripheral edema. NEUROLOGIC: Slow to mentate and definitely has proximal muscle weakness. LABORATORY DATA: White count is 8.6, H&H 9 and 27, and platelet count was noted to be 290. Her sodium is 140, potassium 3.8, BUN and creatinine of 24 and 1.3 and blood sugar is noted to be 111. Admit UA does show 1+ leukocyte esterase and moderate bacteria still. ASSESSMENT: This is an 83-year-old female patient admitted to the rehab with a working diagnosis of debility secondary to ESBL septicemia. The patient has potential to make improvement. We instituted the following multidisciplinary therapies include, but not limited to physical, occupational, respiratory, speech, nutritional services, prosthetics and orthotics. Given her complex medical condition and risk for more complications, rehabilitation services cannot be provided at a low level of care such as a skilled nurse facility. PLAN: 1. Admit to [facility] rehab for an intensive inpatient therapy to include the following disciplines: A. Physical therapy to improve gait, all transfer skills and bed mobility to a modified independent level. B. Occupational therapy to improve activities of daily living to a modified independent level. C. Case management to assist with discharge planning and placement options. D. Nutrition to assist with nutritional needs. E. Rehabilitation nursing to assist in monitoring the patient's underlying medications conditions and to assist with any type of bowel or bladder management. 2. The patient's current medication and medical care will be continued. 3. The patient will be placed on standard fall precautions. 4. The patient's estimated length of stay is approximately 7-10 days. 5. We will discuss with patient during care team staff meeting this week. I will go ahead and keep her on her Diflucan and also antibiotics at this time, reculture her urine if necessary and I will see again in the a.m. HISTORY AND PHYSICAL [id number] RASHEL DURON TRANSINT:[id number] Voice Confirmation ID: [id number] DOCUMENT ID: [id number] DORIS notes whether there has been none or any medical/functional change since admission: - No change since prescreen. DORIS attests patient continues to be appropriate for IRF: - Continues to be appropriate. CLEVE ELDRIDGE MD at 1032 CC: [id number] DICTATION DATE: 01/30/19 0848 ART HANDLER: 01/30/19 0943 ADM IN [facility] [address] [id number]
--- NOTE | 2019-02-12 13:38 | NUR ---
THE PATIENT WAS LYING IN BED AND WATCHING TELEVISON WHEN STAFF ENTERED HER ROOM. BED IS IN THE LOW POSITION WITH SIDERAILS X2 AND CALL LIGHT WITHIN REACH. THE PATIENT WAS EDUCATED ON THE USE OF A CALL LIGHT AND DEMONSTRATES UNDERSTANDING VIA TEACHBACK METHOD. THE PATIENT APPEARS COMFORTABLE WITH NO QUESTIONS OR COCNERNS AT THIS TIME.
--- NOTE | 2019-02-12 15:02 | NUR ---
CARE TEAM MEETING: PATIENT PROGRESSING WITH THERAPY. TENATIVE DISCHARGE TOMORROW. SPOKE WITH JENNIFFER AT [facility] WHICH IS HER [facility]. JENNIFFER STATES TRANSPORT IS SCHEDULED FOR TOMORROW AFTER 1:00PM. JESSICA SEARS, [employer] [facility]
--- NOTE | 2019-02-12 19:44 | NUR ---
DIRECTOR OF ACCOUNTS RECEIVABLE ASSISTED TO AND FROM BATHROOM AT THIS TIME. PT BACK IN BED. CL IN REACH. BED IN LOW SIDE RAILS X2. RESP EVEN AND UNLABORED. O2 ON 2L VIA NC. A/O X4. WILL CONTINUE TO MONITOR.
[2019-02-12 20:00] VITALS: BP 144/55
--- NOTE | 2019-02-12 22:30 | NUR ---
ASSISTED TO AND FROM BATHROOM. PAIN PILL GIVEN PER SEP FOR LEG AND NECK PAIN. DENIES FURTHER NEEDS. BACK IN BED. CL IN REACH. O2 ON 2.5L. BED IN LOW. RESP EVEN AND SLIGHT DYSPNEA ON EXCERTION. WCTM
--- NOTE | 2019-02-13 01:30 | NUR ---
ASSISTED TO AND FROM BATHROOM. CL IN REACH. BACK IN BED. WCTM
--- NOTE | 2019-02-13 03:31 | NUR ---
FIELD LABORATORY OPERATOR ASSISTED TO AND FROM BATHROOM. CL IN REACH. DENIES NEEDS. BACK IN BED. WCTM
--- NOTE | 2019-02-13 03:41 | NUR ---
I have reviewed this patient and I concur with the Shift Assessment completed by the Licensed Practical Nurse today this shift.
--- NOTE | 2019-02-13 05:55 | NUR ---
ASSISTED TO AND FROM BATHROOM. CL IN REACH. DENIES FURTHER NEEDS. WCTM
[2019-02-13 08:00] VITALS: BP 131/49
[2019-02-13] MEDS ORDERED: OMNICEF300 MG PO (09:05)
[2019-02-13] MEDS ORDERED: Bumex PO (09:06)
--- NOTE | 2019-02-13 14:29 | NUR ---
DISCHARGE PAPERS SIGNED BY PT. NO QUESTIONS ABOUT INSTRUCTIONS. REPORT CALLED TO [facility] AND SPOKE WITH COOKIE STUART. PT LEFT FLOOR VIA W/C AND LEFT FACILITLY VIA ASSISTED VAN. ALL PERSONAL BELONGINGS WITH PT.
--- NOTE | 2019-02-17 12:40 | NUR ---
CASE MANAGEMENT NOTE LATE ENTRY: PATIENT DISCHARGED HOME TO [facility] WHERE SHE IS A RESIDENT. PATIENT CHOICE FORM SIGNED AND [facility] FORM SIGNED. COPY GIVEN TO PATIENT AND FILED IN CHART. PATIENT PICKED UP BY FACILITY UPON DISCHARGE. JESSICA SEARS, [facility]
--- NOTE | 2019-03-20 10:44 | DS ---
PATIENT:RASHEL DURON :37 MEDICAL RECORD: [id number] DISCHARGE SUMMARY ADMISSION DATE: 01/29/19 DISCHARGE DATE: 02/13/19 This is a discharge dated 02/13/2019 from inpatient rehabilitation. PRIMARY DIAGNOSIS: Decreased functional ability and ability to provide activities of daily living secondary to weakness and debility secondary to sepsis. SECONDARY DIAGNOSES: 1. Urinary tract infection. 2. Acute kidney injury. 3. Cellulitis of the lower extremities. 4. Morbid obesity. 5. Hyponatremia. 6. Hypokalemia. 7. Diabetes. 8. Acute on chronic hypoxic respiratory failure. 9. Chronic back pain. 10. Gastroesophageal reflux disease. 11. Congestive heart failure. 12. Constipation. 13. Anemia. 14. Pulmonary hypertension. 15. Coronary artery disease. 16. History of cerebrovascular accident. HOSPITAL COURSE: Full H and P is located elsewhere on the chart on this 83-year-old female who was admitted to inpatient rehab for physical therapy and occupational therapy to improve gait, transfer skills, bed mobility, and activities of daily living to a modified independent level. She was evaluated by PT and OT and their plans of care were followed. She required fci care for observation and assessment and medication administration. She had a midline placed for IV access to continue IV antibiotics. She was initially on Zosyn and Diflucan with a change to Omnicef during her stay for treatment of cellulitis. Electrolytes were managed by protocol. Fingerstick blood sugars were monitored throughout her hospital stay with appropriate adjustment in medications as needed. She remained on supplemental oxygen as needed to keep sats greater than 92% and had nebulized medications for respiratory support. She was cooperative with therapies, progressing towards goals. Case management was involved for discharge planning. She had frequent monitoring of H and H and other labs. She was considered stable for discharge on 02/13/2019, having met all of her PT and OT goals. DISCHARGE MEDICATIONS: As per discharge medication reconciliation. DISCHARGE DISPOSITION: The patient is discharged back to [facility] where she was previously a resident. She will continue her current diet and level of activity. She will follow up with primary care at the correction and with specialist as directed. At least 30 minutes was spent in this discharge activity. TRANSINT:[id number] Voice Confirmation ID: [id number] DOCUMENT ID: [id number] DISCHARGE SUMMARY REPORT [id number] RASHEL DURON Dictated By: NICHO SAHU I have interviewed/examined the above patient and agree with these documented findings. CLEVE ELDRIDGE MD at 1046 at 1044 CC: [id number] DICTATION DATE: 03/16/19 170 ON AIR HOST: 03/16/19 2322 DIS IN 02/13/19 [facility] [address] [id number]
== END 2019-02-13 14:32 | DRG 947 ==
LOC: D.REHAB 18:50
PROVIDERS: ADMIT Emergency Medicine; ATTEND Emergency Medicine
DX: R53.81 Other malaise (principal); A41.9 Sepsis, unspecified organism; J96.21 Acute and chronic respiratory failure with hypoxia; N39.0 Urinary tract infection, site not specified; N17.9 Acute kidney failure, unspecified; I24.8 Other forms of acute ischemic heart disease; E87.1 Hypo-osmolality and hyponatremia; I50.22 Chronic systolic (congestive) heart failure; I27.20 Pulmonary hypertension, unspecified; E11.9 Type 2 diabetes mellitus without complications; D64.9 Anemia, unspecified; E66.01 Morbid (severe) obesity due to excess calories; R06.01 Orthopnea; A49.8 Other bacterial infections of unspecified site; E87.8 Other disorders of electrolyte and fluid balance, not elsewhere classified; E83.42 Hypomagnesemia; Z68.36 Body mass index [BMI] 36.0-36.9, adult

== ENCOUNTER 2020-12-19 15:34 | Inpatient (IN) | payer MEDICARE, BC ==
[~2020-12-19] VITALS: Ht 172.7 cm; Wt 90.7 kg
[~2020-12-19 15:34] MED LIST changes: +Bumex PO; +OMNICEF300 MG PO
[2020-12-19 16:27] LABS: BACTERIA MANY HPF (NONE SEEN); BILIRUBIN NEGATIVE (NEGATIVE); KETONE NEGATIVE (NEGATIVE); NITRITE NEGATIVE (NEGATIVE); UROBILINOGEN NORMAL mg/dL (< 2); WHITE CELLS - URINE >50 HPF (0-4)
[2020-12-19 16:59] LABS: BASOPHILS 0.5 % (0-2); EOSINOPHILS 0.4 % (0-7); HEMATOCRIT 37.6 % (36.0-48.0); HEMOGLOBIN 12.1 g/dL (12-16); LYMPHOCYTES 19.5 % (15-50); MCH 33.2 pg (26.0-34.0); MCV 103.7 fL (80.0-100.0); MEAN PLATELET VOLUME 9.1 fL (7.4-10.4); MONOCYTES 13.6 % (2-11); PLATELET COUNT 179 10x3/uL (130-400); RBC 3.63 10x6/uL (4.00-5.40); RDW 15.7 % (11.5-14.5); WBC 5.2 10x3/uL (4.8-10.8)
[2020-12-19 17:13] LABS: ANION GAP 14.4 mmol/L (8-16); CALCIUM 8.4 mg/dL (8.5-10.1); CARBON DIOXIDE 24.1 mmol/L (21.0-32.0); CREATININE - SERUM 3.8 mg/dL (0.6-1.3); POTASSIUM - SERUM 4.5 mmol/L (3.5-5.1)
[2020-12-19 17:19] LABS: ALBUMIN 2.8 g/dL (3.4-5.0); BILIRUBIN - TOTAL 0.54 mg/dL (0.2-1.3); PROTEIN - SERUM 6.2 g/dL (6.4-8.2)
--- NOTE | 2020-12-19 19:13 | NUR ---
REPORT GIVEN TO JOSE ANGEL GANT
[2020-12-19 19:25] VITALS: BP 122/59
[2020-12-19 21:19] VITALS: BP 101/46
[2020-12-20 00:27] VITALS: BP 114/45
[2020-12-20] MEDS ORDERED: ZYLOPRIM100 MG PO (02:33)
[2020-12-20] MEDS ORDERED: OPTIVE SENSITI1 EACH EACH EYE (02:35)
[2020-12-20] MEDS ORDERED: LIPITOR40 MG PO (02:36)
[2020-12-20] MEDS ORDERED: ACEROLA C500 MG PO (02:36)
[2020-12-20] MEDS ORDERED: NUTRISOURCE FI1 EACH PO (02:37)
[2020-12-20] MEDS ORDERED: COREG12.5 MG PO (02:40)
[2020-12-20] MEDS ORDERED: COREG25 MG PO (02:41)
[2020-12-20] MEDS ORDERED: CLONIDINE HCL0.1 MG PO (02:42)
[2020-12-20] MEDS ORDERED: COLACE100 MG PO (03:10)
[2020-12-20] MEDS ORDERED: COMBIVENT RESPIM4 GM INH (03:12)
[2020-12-20] MEDS ORDERED: ENTRESTO 24 MG1 EACH PO (03:14)
[2020-12-20] MEDS ORDERED: GABAPENTIN100 MG PO (03:19)
[2020-12-20] MEDS ORDERED: FERROUS GLUCON324 MG PO (03:19)
[2020-12-20] MEDS ORDERED: HYDRALAZINE HC100 MG PO (03:57)
[2020-12-20] MEDS ORDERED: MUCINEX600 MG PO (03:57)
[2020-12-20] MEDS ORDERED: HYDRALAZINE HCL50 MG PO (04:01)
[2020-12-20] MEDS ORDERED: LASIX40 MG PO (04:06)
[2020-12-20] MEDS ORDERED: MAG-OXIDE400 MG PO (04:07)
[2020-12-20] MEDS ORDERED: CLARITIN 10 MG10 MG PO (04:07)
[2020-12-20] MEDS ORDERED: DITROPAN XL 1010 MG PO (04:08)
[2020-12-20] MEDS ORDERED: ADCIRCA20 MG PO (04:10)
[2020-12-20] MEDS ORDERED: VITAMIN D325 MC1 PO (04:11)
[2020-12-20 04:16] VITALS: BP 127/52
[2020-12-20 06:49] LABS: BASOPHILS 0.4 % (0-2); EOSINOPHILS 1.4 % (0-7); HEMATOCRIT 35.8 % (36.0-48.0); HEMOGLOBIN 11.6 g/dL (12-16); LYMPHOCYTES 15.4 % (15-50); MCH 33.7 pg (26.0-34.0); MCHC 32.5 g/dL (31.0-37.0); MCV 103.6 fL (80.0-100.0); MEAN PLATELET VOLUME 9.9 fL (7.4-10.4); MONOCYTES 14.9 % (2-11); NEUTROPHILS 67.9 % (40-80); PLATELET COUNT 175 10x3/uL (130-400); RBC 3.45 10x6/uL (4.00-5.40); RDW 15.5 % (11.5-14.5); WBC 4.8 10x3/uL (4.8-10.8)
[2020-12-20 07:37] LABS: ALBUMIN 2.6 g/dL (3.4-5.0); BILIRUBIN - TOTAL 0.48 mg/dL (0.2-1.3); CALCIUM 8.4 mg/dL (8.5-10.1); CARBON DIOXIDE 20.3 mmol/L (21.0-32.0); CREATININE - SERUM 3.4 mg/dL (0.6-1.3); MAGNESIUM - SERUM 2.1 mg/dL (1.8-2.4); PHOSPHOROUS 4.7 mg/dL (2.5-4.9); POTASSIUM - SERUM 4.3 mmol/L (3.5-5.1)
[2020-12-20 08:02] VITALS: BP 141/69
[2020-12-20 11:00] VITALS: Ht 172.7 cm; Wt 90.7 kg
[2020-12-20 11:30] VITALS: BP 115/42
[2020-12-20 16:00] VITALS: BP 125/61
--- NOTE | 2020-12-20 19:00 | NUR ---
REPORT GIVEN BY JOSE ANGEL BARRETT
[2020-12-20 20:00] VITALS: BP 143/83
--- NOTE | 2020-12-20 21:00 | NUR ---
PT RESTING QUIETLY IN ROOM. HER SON IS SPENDING THE NIGHT. PT DOES NOT C/O ANY PAIN. SHE TOLD ME SHE HAD A CVA IN THE PAST AND HER RIGHT SIDE IS WEAKER THAN THE LEFT. SHE DOES WELL COMPENSATING. SHE IS GETTING UP WITH HER TECH ABOUT EVERY 2 HOURS TO AMBULATE TO THE BR. SHE HAS A PUREWICK IN PLACE BUT TRIES TO GET UP WHEN SHE HAS TO GO. THE HEAD OF HER BED IS ELEVATED TO ABOUT 75 DEGREES. SHE IS NOT CONFUSED TO ME AT ALL BUT I HAVE NOT ASKED HER DETAILED QUESTIONS.
--- NOTE | 2020-12-20 23:15 | NUR ---
PT UP WITH TECH TO THE BR
[2020-12-21] VITALS: BP 140/72
--- NOTE | 2020-12-21 02:32 | NUR ---
IN PT ROOM TO HANG A NEW BAG OF FLUID. SHE IS AWAKE BUT STILL VERY SLEEPY. SHE HAS DONE A REALLY GOOD JOB OF HOLDING HER IV ARM STRAIGHT AND THE ALARM IS NOT BEEPING NEAR MUCH. PT STATES SHE IS GOING BACK TO SLEEP
--- NOTE | 2020-12-21 02:42 | NUR ---
JUST HUNG A NEW BAG OF FLUIDS. PT IS AWAKE IN ROOM BUT STATES SHE HAS BEEN SLEEPING. PT IS EXCITED AND GRATEFUL THAT HER TECH TONIGHT, SARAH, IS GETTING HER UP TO THE BR.
--- NOTE | 2020-12-21 03:31 | NUR ---
PT IS RESTING QUIETLY IN HER BED WITH HER EYES CLOSED.
[2020-12-21 04:00] VITALS: BP 121/71
[2020-12-21 05:41] LABS: BASOPHILS 0.6 % (0-2); EOSINOPHILS 1.6 % (0-7); LYMPHOCYTES 20.3 % (15-50); MCH 32.9 pg (26.0-34.0); MCHC 32.4 g/dL (31.0-37.0); MCV 101.8 fL (80.0-100.0); MEAN PLATELET VOLUME 9.4 fL (7.4-10.4); MONOCYTES 14.8 % (2-11); NEUTROPHILS 62.7 % (40-80); PLATELET COUNT 184 10x3/uL (130-400); RBC 3.63 10x6/uL (4.00-5.40); RDW 15.6 % (11.5-14.5); WBC 4.3 10x3/uL (4.8-10.8)
--- NOTE | 2020-12-21 05:47 | NUR ---
PT IV STARTED LEAKING IN THE LEFT FORARM. NIKHIL, RN FORESTRY AND WILDLIFE MANAGER, RESTARTED IV IN THE RIGHT FOREARM. IV IS RUNNING AT 75 ML/HR. PT IS EXCITED THAT SHE DOESN'T HAVE TO KEEP HER ARM STRAIGH ANY MORE. SHE HAS NO C/O AT THIS TIME.
[2020-12-21 06:07] LABS: ANION GAP 16.3 mmol/L (8-16); CALCIUM 8.3 mg/dL (8.5-10.1); CARBON DIOXIDE 20.2 mmol/L (21.0-32.0); MAGNESIUM - SERUM 2.1 mg/dL (1.8-2.4); POTASSIUM - SERUM 4.5 mmol/L (3.5-5.1); URIC ACID 6.9 mg/dL (2.6-7.2)
[2020-12-21 06:11] LABS: CREATININE - SERUM 2.4 mg/dL (0.6-1.3); PHOSPHOROUS 3.5 mg/dL (2.5-4.9)
[2020-12-21 08:38] LABS: PRO/CRE RATIO URINE 0.5 mg/g; PROTEIN - URINE 77.9 mg/dL (0.0-11.9)
[2020-12-21 08:39] VITALS: BP 129/62
--- NOTE | 2020-12-21 10:09 | NUR ---
PATIENT AAOX4 RESP EVEN AND NON LABORED, NO S/S OF DISTRESS, PATIENT LOOKS BETTER TODAY AND STATES HE FEELS BETTER, MEDICATIONS ADMINISTERED, IV ANTIBIOTICS ADMINISTERED WITH NO COMPLICATIONS, PATIENT ASKED HOW LONG HE WOULD BE ADMITTED AND IF HIS LUNGS WAS IMPROVING, PATIENT INFORMED THAT THE REMDESIVER WAS ORDERED FOR 4 DAYS AND HE WOULD FINISH THAT AT 1699, NO FURTHER NEEDS AT THIS TIME, CALOS IRWIN
--- NOTE | 2020-12-21 11:14 | NUR ---
PATIENT AAOX4 RESP EVEN AND NON LABORED, NO S/S OF DISTRESS, PATIENT IS VERY PLEASANT, MEDICATIONS ADMINISTERED WITH NO COMPLICATIONS, PATIENT INFORMED SHE HAS ESBL IN HER URINE AND WILL NOW BE ON CONTACT ISOLATION, IV ANTIBIOTICS CHANGED AND INFUSING, NO FURTHER NEEDS AT THIS TIME, CALOS IRWIN
--- NOTE | 2020-12-21 12:19 | NUR ---
I have reviewed this patient and I concur with the Shift Assessment completed by the Licensed Practical Nurse today this shift.
[2020-12-21 13:38] VITALS: BP 115/64
[2020-12-21 16:30] VITALS: BP 126/77
[2020-12-21 19:51] VITALS: BP 124/64
[2020-12-22 01:09] VITALS: BP 144/89
--- NOTE | 2020-12-22 03:03 | NUR ---
I have reviewed this patient and I concur with the Shift Assessment completed by the Licensed Practical Nurse today this shift.
[2020-12-22 04:18] VITALS: BP 140/82
--- NOTE | 2020-12-22 08:20 | NUR ---
PATIENT AAOX4 RESP EVEN AND NON LABORED, NO S/S OF DISTRESS, MEDICATIONS ADMINISTERED WITH NO COMPLICATIONS, BUTTOCKS REDDENED BUT NO BREAKDOWN, PATIENT EDUCATED TO TURN ON SIDE SOME TO PREVENT BREAKDOWN, NO FURTHER NEEDS AT THIS TIME, CALOS IRWIN
[2020-12-22 08:27] LABS: BASOPHILS 0.5 % (0-2); EOSINOPHILS 2.7 % (0-7); HEMATOCRIT 34.6 % (36.0-48.0); HEMOGLOBIN 11.5 g/dL (12-16); LYMPHOCYTES 19.4 % (15-50); MCH 33.8 pg (26.0-34.0); MCHC 33.2 g/dL (31.0-37.0); MCV 101.9 fL (80.0-100.0); MEAN PLATELET VOLUME 9.2 fL (7.4-10.4); MONOCYTES 16.4 % (2-11); PLATELET COUNT 184 10x3/uL (130-400); RBC 3.39 10x6/uL (4.00-5.40); RDW 15.6 % (11.5-14.5); WBC 4.4 10x3/uL (4.8-10.8)
[2020-12-22 08:34] VITALS: BP 124/82
[2020-12-22 08:52] LABS: ANION GAP 12.5 mmol/L (8-16); CALCIUM 8.9 mg/dL (8.5-10.1); CARBON DIOXIDE 22.7 mmol/L (21.0-32.0); CREATININE - SERUM 1.6 mg/dL (0.6-1.3); MAGNESIUM - SERUM 2.2 mg/dL (1.8-2.4); POTASSIUM - SERUM 4.2 mmol/L (3.5-5.1)
[2020-12-22 11:49] VITALS: BP 142/73
--- NOTE | 2020-12-22 12:53 | NUR ---
Nutrition Reassessment/Follow-up: Eating well. Noted renal function improving. Diet: Renal No PO intake recorded No new wt; last wt: 200# (12/20) Labs noted: K+ 4.2, BUN 39, Cre 1.6, GFR 32, PO4 3.0 Meds noted: Florajen, Pepcid, Zofran, D5NS @ 75, electrolyte protocol Nutrition Diagnosis: -Altered nutrition-related lab values R/T kidney dysfunction AEB BUN 39, Cre 1.6, GFR 32. Nutrition Goals: -PO intake >=75% avg of meals/snacks. -Stable dry wt. Nutrition Intervention: -Nutrition needs & Dx unchanged since initial assessment. -Rec liberalize diet to cardiac diet (K+/PO4 wnl). -Encourage PO intake and honor food preferences within diet restrictions. -Monitor wt. -RD will follow up within 5-7 days.
--- NOTE | 2020-12-22 13:32 | NUR ---
I have reviewed this patient and I concur with the Shift Assessment completed by the Licensed Practical Nurse today this shift.
--- NOTE | 2020-12-22 13:32 | MORECARE ---
CASE MANAGEMENT DISCHARGE SUMMARY PATIENT: RASHEL DURON UNIT: [id number] ADM DATE: 12/19/20 AGE: 85 : 36 SEX: F [facility] AUTHOR: CARL,DOC PHYSICIAN: REFERRING PHYSICIAN: MARGI BANERJEE MD DATE OF SERVICE: 12/22/20 Case Management Discharge Planning Summary COMMENTS ENTERED DATE: 12/22/20 13:24 CT COMMENT TYPE: Discharge Planning REVIEWER: Leesa Iyer CM SPOKE WITH [facility] AND THEY STATE THEY DO TAKE PATIENT'S ON [place] AND SHE CAN BE DISCHARGED WITH A PERIPHERAL IV. THEY WILL CHECK ON A FINISHER MAP AND CHART TIME AND CALL ME BACK IF ABLE TO ACCEPT TODAY. DCP REVIEW SUMMARY ANTICIPATED D/C DATE: EXPECTED LOS : CASE STATUS: DCP Initiated INITIAL REVIEW: 12/22/2020 INITIAL REVIEWER: Leesa Iyer FINAL DISCHARGE DISPOSITION: : FINAL REVIEWER: FINAL REVIEW DATE: DCP [facility] Questions & Answers QUESTION: ANSWER : PATIENT: RASHEL DURON ENCOUNTER: [id number] MEDICAL RECORD#: [id number] ADMISSION DATE: 12/19/2020 DISCHARGE DATE: ATTENDING MD: MARGI MASTERS : AGE: 85 MARITAL STATUS: W DC PLAN ID: [id number] FACILITY: [facility] PRINTED ON: 12/22/20 13:32 CT All edits/amendments must be made on the electronic document DICTATION DATE: 12/22/201331 FORCER MAKER: JESSE 12/22/20 1332 RPT#: [id number] DC DATE: STATUS: ADM IN [place] [address] [place] [address] END OF REPORT
[2020-12-22] MEDS ORDERED: Merrem 1 GM/NS 100 M IV (13:47)
[2020-12-22] MEDS ORDERED: MEROPENEM1 GM IV (14:00)
--- NOTE | 2020-12-22 14:34 | MORECARE ---
CASE MANAGEMENT DISCHARGE SUMMARY PATIENT: RASHEL DURON UNIT: [id number] ADM DATE: 12/19/20 AGE: 85 : 36 SEX: F ROOM/BED: D.2102 AUTHOR: CARL,DOC PHYSICIAN: REFERRING PHYSICIAN: MARGI BANERJEE MD DATE OF SERVICE: 12/22/20 Case Management Discharge Planning Summary COMMENTS ENTERED DATE: 12/22/20 14:25 CT COMMENT TYPE: Discharge Planning REVIEWER: Pauline Osman CM SPOKE TO PATIENT ABOUT RETURNING TO CURRENT SNF [facility]. PT IS EXCITED TO BE GIN BACK AND HAS NOT ADDITIONAL STATED NEEDS. PT WILL CONTINUE ABX THERAPY AT FACILITY. PT IS SCHEDULED TO BE PICKED UP TODAY AT APPROX 1530. IMM SERVED, SIGNED COPY TO CHART, JOÃO OFFERED AND SIGNED , ALSO PLACED IN CHART. ENTERED DATE: 12/22/20 13:24 CT COMMENT TYPE: Discharge Planning REVIEWER: Leesa Iyer CM SPOKE WITH [facility] AND THEY STATE THEY DO TAKE PATIENT'S ON [place] AND SHE CAN BE DISCHARGED WITH A PERIPHERAL IV. THEY WILL CHECK ON A FEATHER BONER TIME AND CALL ME BACK IF ABLE TO ACCEPT TODAY. DCP REVIEW SUMMARY ANTICIPATED D/C DATE: EXPECTED LOS : CASE STATUS: DCP Initiated INITIAL REVIEW: 12/22/2020 INITIAL REVIEWER: Leesa Iyer FINAL DISCHARGE DISPOSITION: : FINAL REVIEWER: FINAL REVIEW DATE: HIP [employer] Questions & Answers QUESTION: ANSWER : PATIENT: RASHEL DURON ENCOUNTER: [id number] MEDICAL RECORD#: [id number] ADMISSION DATE: 12/19/2020 DISCHARGE DATE: ATTENDING MD: MARGI MASTERS : AGE: 85 MARITAL STATUS: W DC PLAN ID: [id number] FACILITY: [facility] PRINTED ON: 12/22/20 14:34 CT All edits/amendments must be made on the electronic document DICTATION DATE: 12/22/201433 PROCESS IMPROVEMENT ANALYST: JESSE 12/22/20 143 RPT#: [id number] DC DATE: STATUS: ADM IN [facility] [address] [facility] [address] END OF REPORT
--- NOTE | 2020-12-22 17:18 | MORECARE ---
CASE MANAGEMENT DISCHARGE SUMMARY PATIENT: RASHEL DURON UNIT: [id number] ADM DATE: 12/19/20 AGE: 85 : 36 SEX: F ROOM/BED: D.2107 AUTHOR: CARL,DOC PHYSICIAN: REFERRING PHYSICIAN: MARGI BANERJEE MD DATE OF SERVICE: 12/22/20 Case Management Discharge Planning Summary COMMENTS ENTERED DATE: 12/22/20 14:25 CT COMMENT TYPE: Discharge Planning REVIEWER: Pauline Osman CM SPOKE TO PATIENT ABOUT RETURNING TO CURRENT SNF [facility]. PT IS EXCITED TO BE GIN BACK AND HAS NOT ADDITIONAL STATED NEEDS. PT WILL CONTINUE ABX THERAPY AT FACILITY. PT IS SCHEDULED TO BE PICKED UP TODAY AT APPROX 1530. IMM SERVED, SIGNED COPY TO CHART, JOÃO OFFERED AND SIGNED , ALSO PLACED IN CHART. ENTERED DATE: 12/22/20 13:24 CT COMMENT TYPE: Discharge Planning REVIEWER: Leesa Iyer CM SPOKE WITH [facility] AND THEY STATE THEY DO TAKE PATIENT'S ON [place] AND SHE CAN BE DISCHARGED WITH A PERIPHERAL IV. THEY WILL CHECK ON A RUBBER TIRE AND TUBES SUPERVISOR TIME AND CALL ME BACK IF ABLE TO ACCEPT TODAY. DCP REVIEW SUMMARY ANTICIPATED D/C DATE: EXPECTED LOS : CASE STATUS: DCP Initiated INITIAL REVIEW: 12/22/2020 INITIAL REVIEWER: Leesa Iyer FINAL DISCHARGE DISPOSITION: : FINAL REVIEWER: FINAL REVIEW DATE: MDP [employer] Questions & Answers QUESTION: ANSWER : PATIENT: RASHEL DURON ENCOUNTER: [id number] MEDICAL RECORD#: [id number] ADMISSION DATE: 12/19/2020 DISCHARGE DATE: 12/22/2020 ATTENDING MD: MARGI MASTERS : AGE: 85 MARITAL STATUS: W DC PLAN ID: [id number] FACILITY: [facility] PRINTED ON: 12/22/20 17:18 CT All edits/amendments must be made on the electronic document DICTATION DATE: 12/22/201717 HAND BASEBALL SEWER: JESSE 12/22/201717 RPT#: [id number] DC DATE:12/22/20 STATUS: DIS IN [facility] [address] [place] [address] END OF REPORT
--- NOTE | 2020-12-23 14:37 | MORECARE ---
CASE MANAGEMENT DISCHARGE SUMMARY PATIENT: RASHEL DURON UNIT: [id number] ADM DATE: 12/19/20 AGE: 85 : 36 SEX: F ROOM/BED: D.2105 AUTHOR: CARL,DOC PHYSICIAN: REFERRING PHYSICIAN: MARGI BANERJEE MD DATE OF SERVICE: 12/23/20 Case Management Discharge Planning Summary COMMENTS ENTERED DATE: 12/22/20 14:25 CT COMMENT TYPE: Discharge Planning REVIEWER: Pauline Osman CM SPOKE TO PATIENT ABOUT RETURNING TO CURRENT SNF [facility]. PT IS EXCITED TO BE GIN BACK AND HAS NOT ADDITIONAL STATED NEEDS. PT WILL CONTINUE ABX THERAPY AT FACILITY. PT IS SCHEDULED TO BE PICKED UP TODAY AT APPROX 1530. IMM SERVED, SIGNED COPY TO CHART, JOÃO OFFERED AND SIGNED , ALSO PLACED IN CHART. ENTERED DATE: 12/22/20 13:24 CT COMMENT TYPE: Discharge Planning REVIEWER: Leesa Iyer CM SPOKE WITH [facility] AND THEY STATE THEY DO TAKE PATIENT'S ON [place] AND SHE CAN BE DISCHARGED WITH A PERIPHERAL IV. THEY WILL CHECK ON A BRAKE ENGINEER TIME AND CALL ME BACK IF ABLE TO ACCEPT TODAY. DCP REVIEW SUMMARY ANTICIPATED D/C DATE: EXPECTED LOS : CASE STATUS: DCP Initiated INITIAL REVIEW: 12/22/2020 INITIAL REVIEWER: Leesa Iyer FINAL DISCHARGE DISPOSITION: : FINAL REVIEWER: FINAL REVIEW DATE: ARP [facility] Questions & Answers QUESTION: ANSWER : PATIENT: RASHEL DURON ENCOUNTER: [id number] MEDICAL RECORD#: [id number] ADMISSION DATE: 12/19/2020 DISCHARGE DATE: 12/22/2020 ATTENDING MD: MARGI MASTERS : AGE: 85 MARITAL STATUS: W DC PLAN ID: [id number] FACILITY: [facility] PRINTED ON: 12/23/20 14:37 CT All edits/amendments must be made on the electronic document DICTATION DATE: 12/23/201436 PRODUCT MANAGEMENT INTERN: JESSE 12/23/201436 RPT#: [id number] DC DATE:12/22/20 STATUS: DIS IN [facility] [address] [place] [address] END OF REPORT
== END 2020-12-22 17:14 | DRG 683 ==
LOC: D.ER 15:34 → D.M2 16:24 → D.EDHOLD 16:24 → D.M2 20:03
PROVIDERS: Family Medicine; Internal Medicine Nephrology; ADMIT Emergency Medicine; ATTEND Emergency Medicine
DX: N17.9 Acute kidney failure, unspecified (principal); N39.0 Urinary tract infection, site not specified; I48.20 Chronic atrial fibrillation, unspecified; I13.0 Hypertensive heart and chronic kidney disease with heart failure and stage 1 through stage 4 chronic kidney disease, or unspecified chronic kidney disease; I69.351 Hemiplegia and hemiparesis following cerebral infarction affecting right dominant side; I50.9 Heart failure, unspecified; K21.9 Gastro-esophageal reflux disease without esophagitis; I27.20 Pulmonary hypertension, unspecified; F32.9 Major depressive disorder, single episode, unspecified; N18.9 Chronic kidney disease, unspecified; R32 Unspecified urinary incontinence